=== PATIENT | female | born 1955 | race Caucasian/White ===

== ENCOUNTER → 2016-09-04 | Outpatient (CLI) | payer BC ==
[~2016-09-04] MED LIST: CHOL200018 PO; DCS100C PO; FEXO180T84 PO; FLUT9.9S NS; HCT25T PO; HYDR-3454 PO; LACT1CAP66 PO; NF-ESOM40C PO
--- OUTSIDE RECORDS SUMMARY | 2016-09-04 10:29 | XMS REPORT ---
Author ANTOINETTE Casper Organization [employer] Address Unknown Phone Unavailable Care Team Providers Care Strategic Planning Director Name Role Phone ANTOINETTE BERMUDEZ CP Unavailable Allergies No Known Allergies Problems Problem Type Condition Code Onset Dates Condition Status Assessment Encounter for immunization Z23 Active Problem Need for prophylactic vaccination and inoculation, Influenza V04.81 Active Medications No Known Medications Procedures Procedure Coding System Code Date SINGLE IMMUNIZATION ADMIN CPT-4 39796 Apr 21, 2016 FLUARIX QUAD P-FREE 3 AND UP .50 2015 CPT-4 57598 Apr 21, 2016 Results No Known Results Immunizations Vaccine Administration Date FLUARIX QUAD P-FREE 3 AND UP .50 2015Apr 21, 2016 Summary Purpose [employer]Clinical[employer] Submission
--- NOTE | 2016-09-04 18:46 | Diagnostic Imaging Report ---
Bilateral screening mammogram The current study was also evaluated with a Computer Aided Detection (CAD) system. INDICATION: Screening. No current complaints stated on the questionnaire. COMPARISON: 03/12/2015. FINDINGS: The breasts are composed of heterogeneously dense parenchyma which may decrease mammographic sensitivity. There is no mass, architectural distortion, or suspicious cluster of calcifications. There is a biopsy clip in the medial aspect of the left breast. Allowing for technique and positional differences, no suspicious change is seen. IMPRESSION: No significant change. ACR BI-RADS Category 2: Benign findings. Result letter will be mailed to the patient. Note: At least 10% of breast cancer is not imaged by mammography. Dictated by: Dictated on workstation # [id number]
== END ==
LOC: RAD 10:26
PROVIDERS: ATTEND Internal Medicine
DX: Z12.31 Encounter for screening mammogram for malignant neoplasm of breast (principal)
CPT/HCPCS: 77067

== ENCOUNTER 2018-06-02 02:47 | Observation (INO) | payer BC ==
[~2018-06-02] VITALS: Ht 167.6 cm; Wt 68.0 kg
[2018-06-02] VITALS (13 sets, daily range): BP systolic 108–138; BP diastolic 67–87
--- OUTSIDE RECORDS SUMMARY | 2018-06-02 02:52 | XMS REPORT | Clinical Summary ---
Author Author User, GELY Organization [facility] [place] Address Unknown Phone Unavailable Allergies, Adverse Reactions, Alerts Allergy Name Reaction Description Start Date Severity Status Provider No Known Allergies Mague Sousa Conditions or Problems Problem Name Problem Code Onset Date Status Entry Date Provider Comment Standard Description Annotate PHARYNGITIS, ACUTE 462 Resolved Mague Sousa Acute pharyngitis SINUS CONGESTION 478.1 Resolved Mague Sousa Other diseases of nasal cavity and sinuses OBESITY 278.00 Resolved Mague Sousa Obesity, unspecified COUGH 786.2 Resolved Mague Sousa Cough MENSTRUAL IRREGULARITY 626.4 Resolved Mague Sousa Irregular menstrual cycle ALLERGIC RHINITIS, CHRONIC 477.9 Active Mague Sousa Allergic rhinitis, cause unspecified DYSPNEA ON EXERTION 786.09 Resolved Mague Sousa Other dyspnea and respiratory abnormality OSTEOPOROSIS, UNSPECIFIED 733.00 Resolved Mague Sousa Osteoporosis, unspecified SCREENING MAMMOGRAM NEC V76.12 Resolved Mague Sousa Other screening mammogram SYMPTOM, ABNORMALITY, RESPIRATORY NEC 786.09 Resolved Mague Sousa Other dyspnea and respiratory abnormality DYSPNEA 786.09 Resolved Mague Sousa Other dyspnea and respiratory abnormality SYMPTOM, PAIN, ABDOMINAL, EPIGASTRIC 789.06 Resolved Mague Sousa Abdominal pain, epigastric COUGH 786.2 Resolved Mague Sousa Cough PULMONARY FIBROSIS, 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 Sousa Idiopathic interstitial pneumonia FIBROCYSTIC BREAST DISEASE 610.1 Resolved Mague Sousa Diffuse cystic mastopathy VERTIGO, BENIGN PAROXYSMAL POSITION 386.11 Resolved Mague Sousa Benign paroxysmal positional vertigo CONSTIPATION, CHRONIC 564.09 Resolved Mague Sousa Other constipation WELL WOMAN V70.0 Resolved Mague Sousa Routine general medical examination at a health care facility ELEVATED BLOOD PRESSURE WITHOUT DIAGNOSIS OF HYPERTENSION 796.2 Resolved Mague Sousa Elevated blood pressure reading without diagnosis of hypertension EDEMA LEG 782.3 Active Mague Sousa Edema MERALGIA PARESTHETICA 355.1 Resolved Mague Sousa Meralgia paresthetica HYPOKALEMIA, MILD 276.8 Active Mague Sousa Hypopotassemia ABDOMINAL PAIN, RIGHT UPPER QUADRANT 789.01 Active Mague Sousa Abdominal pain, right upper quadrant Medication List Medication Instructions Start Date Stop Date Generic Name NDC Status Provider Patient Instruction PEEWEE M10 10 MEQ CR-TABS 1 PO daily POTASSIUM CHLORIDE ARVIND CR 43479722064 Active Mague Sousa ZYRTEC 10 MG TAB 1 PO QD CETIRIZINE HCL Active Mague Sousa FLONASE 50 MCG/DOSE INHALANT 2 puffs each nostril daily FLONASE 50 MCG/DOSE INHALANT Active Mague Sousa CALTRATE 600 PLUS-VIT D 600-200 MG-IU TABS 1 PO BID CALCIUM-VITAMIN D No Longer Active Mague Sousa DIALYVITE VITAMIN D 5000 CAPS 1 po daily CHOLECALCIFEROL CAPS 45614962550 Active Maguemargret Sousa HYDROCHLOROTHIAZIDE 25 MG TAB 1 PO QD HYDROCHLOROTHIAZIDE 23678950927 Active Sonja Meraz ANUSOL-HC 2.5 % CREA apply TID prn to hemorrhoid HYDROCORTISONE 39014406237 No Longer Active Mague Tanisha Sousa FLEXERIL 10 MG TABS 1 PO TID prn CYCLOBENZAPRINE HCL 44546296617 No Longer Active Mague Tanisha Sousa VIACTIV 500-100-40 CHEW 1 PO BID CALCIUM-VITAMIN D- VITAMIN K 28820951567 No Longer Active Mague Tanisha Sousa ASTELIN 137 MCG/SPRAY SOLN 2 puffs each nostril twice daily 01/17 AZELASTINE HCL 30723470363 No Longer Active Mague Tanisha Sousa FLONASE 50 MCG/ACT SUSP 1 squirt each nostril BID FLUTICASONE PROPIONATE 35370604434 No Longer Active Mague Tanisha Sousa NEXIUM 40 MG CPDR 1 PO QD ESOMEPRAZOLE MAGNESIUM 18858877186 No Longer Active Mague Tanisha Sousa ATROVENT 18 MCG/ACT AERS 2 puff each nostril before bedtime. 2005 IPRATROPIUM BROMIDE 93451513037 No Longer Active Mague Tanisha Sousa VICKI 180 MG TABS 1 PO QD FEXOFENADINE HCL 10556450785 No Longer Active Mague Tanisha Sousa CODICLEAR DH 5-100 MG/5ML SYRP 5 cc Po Q4-6prn HYDROCODONE-GUAIFENESIN 97752147641 No Longer Active Mague Tnaisha Sousa KETEK 5-DAY PACK DIRECTED KETEK 5-DAY PACK No Longer Active Mague Tanisha Sousa ZITHROMAX Z-CHRIS 250 MG TABS as directed AZITHROMYCIN 24442878268 No Longer Active Mague Sousa ROBITUSSIN DM 100-10 MG/5ML SYRP prn OTC DEXTROMETHORPHAN-GUAIFENESIN 85099182058 No Longer Active Mague Sousa CODICLEAR DH 5-100 MG/5ML SYRP 5 cc Po Q4-6prn HYDROCODONE-GUAIFENESIN 37059277066 No Longer Active Mague Linoner Immunizations Vaccine Administration Date Value Standard Description Influenza vaccine given Done influenza virus vaccine, unspecified formulation Diagnostic Results Date Name Value Unit Range Description Clinical Lists Update: CBC,CMP,FLP,TSH - Chemistry Estimated Glomerular Filtration Rate (calc) >60 mL/min/1.73m2 glucose, plasma fasting 99 mg/dL albumin, serum 4.2 g/dL alkaline phosphatase, serum 70 U/L urea nitrogen, blood 14 mg/dL calcium, serum 9.6 mg/dL chloride, serum 103 mmol/L cholesterol, serum 148 mg/dL cholesterol/HDL ratio, serum, percent 3.74 sodium, serum 139 mmol/L triglyceride, serum, fasting 103 mg/dL bilirubin, serum, total 0.8 mg/dL alanine aminotransferase (SGPT), serum 14 U/L aspartate aminotransferase (SGOT), serum 20 U/L protein, total, serum 7.5 g/dL potassium, serum 3.4 mmol/L LDL cholesterol, serum 127 mg/dL thyroid stimulating hormone, serum 0.980 u[iU]/mL HDL cholesterol, serum 54 mg/dL creatinine, serum 0.80 mg/dL carbon dioxide, venous blood 29 mmol/L Clinical Lists Update: CBC,CMP,FLP,TSH - Hematology platelet count 248 10*3/mm3 erythrocyte (RBC) count 4.42 10*6/mm3 leukocyte count, blood 5.7 10*3/mm3 mean corpuscular volume, RBC 89.6 fL red blood cell distribution width 13.2 % hemoglobin, blood 13.5 g/dL hematocrit, blood 39.6 % Lab Report: CBC - Chemistry basophils, absolute, manual 0.03 10E9/L {Cells}/uL 0.00-0.20 mean corpuscular hemoglobin concentration, rbc 34.1 g/dL 31.0- 34.8 monocytes, absolute, manual 0.46 10E9/L {Cells}/uL 0.20-0.80 polymorphonuclear neutrophils, absolute, manual 2.70 10E9/L { Cells}/uL 1.80-7.80 eosinophils, absolute, manual 0.34 10E9/L {Cells}/uL 0.00-0.45 lymphocytes, absolute, manual 2.18 10E9/L {Cells}/uL 1.00-4.00 Lab Report: CBC - Hematology platelet count 248 143-374 8052/07/31 monocytes as percent of blood leukocytes 8.0 % eosinophils as percent of blood leukocytes 5.9 % mean platelet volume 10.1 fL 9.4-12.8 neutrophil count, CSF 47.3 % basophils as percent of blood leukocytes, automated count 0.5 % mean corpuscular hemoglobin, RBC 30.5 pg 26.7-33.2 mean corpuscular volume, RBC 89.6 fL 82.8-99.8 hematocrit, blood 39.6 % 36.4-47.7 hemoglobin, blood 13.5 g/dL 11.8-15.9 lymphocytes as percent of blood leukocytes, manual count 38.3 % Lab Report: CHEM 14 - Chemistry protein total, urine 7.5 GM/DL 6.5-8.2 sodium, serum 139 mmol/L 114-860 4156/07/31 blood glucose, random 99 mg/dL 70-100 urea nitrogen, blood 14 mg/dL 5-22 chloride, blood 103 mmol/L 96-108 albumin, serum 4.2 g/dL 3.9-4.9 aspartate aminotransferase (SGOT), serum 20 U/L 0-40 bilirubin, serum, total 0.8 mg/dL 0.1-1.0 calcium, serum 9.6 mg/dL 8.5-10.5 bicarbonate, serum 29 mmol/L 18-30 potassium, serum 3.4 mmol/L 3.5-5.5 alanine aminotransferase (SGPT), serum 14 U/L 0-40 alkaline phosphatase, serum 70 U/L 28-123 Lab Report: CHEM 14 - Lab CREATININE 0.80 0.50-1.10 Lab Report: LIPID GRP - Chemistry cholesterol, serum 202 mg/dL [phone]/07/31 HDL cholesterol, serum 54 mg/dL 40-125 triglyceride, serum, random 103 mg/dL 30-150 Lab Report: TSH - Chemistry thyroid stimulating hormone, serum 0.980 u[iU]/mL 0.300-5.000 Encounters Code Encounter Date Provider Facility CPT-17004 Ofc Vst, Est Level IV 20:51:43 CDT Mague Sousa DO, FACP CPT-35374 Ofc Vst, Est Level III 12:54:11 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 Mague Sousa DO, FACP CPT-49731 Ofc Vst, Est Level IV 12:12:27 CDT Mague Sousa DO, FACP CPT-51803 Ofc Vst, Est Level IV 12:00:33 CDT Mague Sousa [facility] [place] CPT-68256 Ofc Vst, Est Level III 11:46:03 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 Tanisha Sousa [facility] [place] CPT-75342 Ofc Vst, Est Level III 14:27:19 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 Mague Tanisha Sousa [facility] [place] CPT-40864 Ofc Vst, Est Level IV 14:34:49 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 Tanisha Sousa [facility] [place] CPT-13911 Ofc Vst, Est Level III 17:42:59 [facility] Tanisha Sousa [facility] [place] CPT-08419 Ofc Vst, New Level IV 17:03:35 [facility] Tanisha Sousa [facility] [place] CPT-04928 Ofc Vst, New Level II 13:31:06 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 Tanisha Sousa [facility] [place] Procedures Code Procedure Name Date Entry Date Standard Description CPT-93353 Preventive, Est, (40-64) 13:24:36 CDT CPT-51602 Preventive, Est, (40-64) 11:42:00 CDT CPT-51212 Preventive, New, (40-64) 11:21:10 CDT CPT-49209 PPD 11:46:03 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
--- OUTSIDE RECORDS SUMMARY | 2018-06-02 02:52 | XMS REPORT ---
Author Author ANTOINETTE BERMUDEZ [facility] Address [address] [place] [address] Care Team Providers Care Painter And Decorator Name Role Phone ANTOINETTE BERMUDEZ Unavailable PROBLEMS Type Condition ICD9-CM Code ZSH37-EW Code Onset Dates Condition Status SNOMED Code Problem Need for prophylactic vaccination and inoculation, Influenza V04.81 Active [id number] ALLERGIES No Information ENCOUNTERS Encounter Location Date Diagnosis [place] [id number] [place] [phone] Apr, Encounter for immunization Z23 [place] [id number] [place] [address] [phone] Apr, Encounter for immunization Z23 [place] [id number] [place] [address] [phone] Mar, Encounter for immunization [place] [id number] [place] [address] [phone] Mar, [place] [id number] [place] [address] [phone] Mar, [place] [id number] [place] [address] [phone] Mar, [place] [id number] [place] [address] [phone] Mar, IMMUNIZATIONS Vaccine Route Administration Date Status FLUARIX QUAD (3 AND UP) 2016 IM Intramuscular Apr 20, 2017 Administered SOCIAL HISTORY Never Assessed REASON FOR VISIT Flu shot-[facility] [place] PLAN OF CARE VITAL SIGNS MEDICATIONS Unknown Medications RESULTS No Results PROCEDURES Procedure Date Ordered Result Body Site FLUARIX QUAD (3 AND UP) 2017 Apr 20, 2017 SINGLE IMMUNIZATION ADMIN Apr 20, 2017 INSTRUCTIONS MEDICATIONS ADMINISTERED No Known Medications
--- OUTSIDE RECORDS SUMMARY | 2018-06-02 02:53 | XMS REPORT ---
Author ANTOINETTE Casper Organization [employer] Address Unknown Phone Unavailable Care Team Providers Care Multiple Drum Sander Helper Name Role Phone ANTOINETTE BERMUDEZ CP Unavailable Allergies No Known Allergies Problems Problem Type Condition Code Onset Dates Condition Status Assessment Encounter for immunization Z23 Active Problem Need for prophylactic vaccination and inoculation, Influenza V04.81 Active Medications No Known Medications Procedures Procedure Coding System Code Date SINGLE IMMUNIZATION ADMIN CPT-4 80968 Apr 21, 2016 FLUARIX QUAD P-FREE 3 AND UP .50 2015 CPT-4 31888 Apr 21, 2016 Results No Known Results Immunizations Vaccine Administration Date FLUARIX QUAD P-FREE 3 AND UP .50 2015Apr 21, 2016 Summary Purpose [employer]ClinicalWorks Submission
--- OUTSIDE RECORDS SUMMARY | 2018-06-02 02:53 | XMS REPORT ---
Author ANTOINETTE Casper Organization [employer] Address Unknown Phone Unavailable Care Team Providers Care Score Caller Name Role Phone ANTOINETTE BERMUDEZ CP Unavailable Allergies No Known Allergies Problems Problem Type Condition Code Onset Dates Condition Status Assessment Encounter for immunization Z23 Active Problem Need for prophylactic vaccination and inoculation, Influenza V04.81 Active Medications No Known Medications Procedures Procedure Coding System Code Date SINGLE IMMUNIZATION ADMIN CPT-4 57284 Apr 09, 2015 FLUARIX QUAD (3 & UP)-GSK-2014 CPT-4 27884 Apr 09, 2015 Results No Known Results Immunizations Vaccine Administration Date FLUARIX QUAD (3 & UP)-GSK-2014Apr 09, 2015 Summary Purpose eClinicalWorks Submission
--- OUTSIDE RECORDS SUMMARY | 2018-06-02 02:53 | XMS REPORT | Continuity of Care Document ---
Author Author Count Includes [facility] Address Unknown Phone Unavailable Allergies Active Description Code Type Severity Reaction Onset Reported/Identified Relationship to Patient Clinical Status Yes NKANo Known Allergies NKA Miscellaneous Allergy Unknown N/A 09/03/2015 Medications There is no data. Problems Date Dx Coded Attending Type Code Diagnosis Diagnosed By 03/22/2012 ANTOINETTE BERMUDEZ DO V04.81 FLU DX (3 YRS AND ABOVE, IM) 03/22/2012 ANTOINETTE BERMUDEZ DO V04.81 FLU DX (3 YRS AND ABOVE, IM) 01/08/2014 PARTHA LYN DO Ot 575.11 CHRONIC CHOLECYSTITIS 03/24/2015 GERA PAGE DO Ot V76.12 09/03/2015 PARTHA LYN DO Ot Z01.818 ENCOUNTER FOR OTHER PREPROCEDURAL EXAMIN 09/06/2015 PARTHA LYN DO Ot Z01.818 09/07/2015 PARTHA LYN DO Ot K21.9 GASTRO-ESOPHAGEAL REFLUX DISEASE WITHOUT 09/07/2015 PARTHA LYN DO Ot K44.9 DIAPHRAGMATIC HERNIA WITHOUT OBSTRUCTION 09/07/2015 PARTHA LYN DO Ot Z12.11 ENCOUNTER FOR SCREENING FOR MALIGNANT NE 09/07/2015 PARTHA LYN DO Ot Z80.0 FAMILY HISTORY OF MALIGNANT NEOPLASM OF 09/07/2015 Ot 733.90 09/07/2015 Ot V76.12 09/07/2015 BRANDON PAGE DOI Ot V76.12 09/07/2015 PAGESHAWN MOFFETT GERA Ot 573.8 09/07/2015 CAMILO MOFFETT GERA Ot 575.9 09/07/2015 PAGESHAWN MOFFETT GERA Ot 789.01 09/07/2015 PAGESHAWN MOFFETT GERA Ot 575.8 09/07/2015 CAMILO MOFFETT GERA Ot 789.01 09/07/2015 PARTHA LYN DO Ot 575.8 09/07/2015 PARTHA LYN DO Ot V72.81 09/07/2015 LYN RAZIA MOFFETTREGINALD Pickering Ot V74.8 09/07/2015 PAGE GERA Ot V76.12 09/08/2015 LYN DORAZIAREGINALD Pickering Ot K21.9 09/08/2015 LYN PARTHA MOFFETT Ladan Ot K44.9 09/08/2015 LYN DOPARTHA Ladan Ot Z12.11 09/08/2015 LYN DORAZIAREGINALD Pickering Ot Z80.0 09/04/2016 GERA PAGE DO Ot V76.12 OTH SCREEN MAMMO-MALIGN NEOPLASM OF [place] 09/04/2016 CAMILO MOFFETT GERA Ot 573.8 LIVER DISORDERS NEC 09/04/2016 BRANDON PAGE DOI Ot 575.9 DIS OF GALLBLADDER NOS 09/04/2016 BRANDON PAGE DOI Ot 789.01 ABDOMINAL PAIN, RIGHT UPPER QUADRANT 09/04/2016 GERA PAGE DO Ot 575.8 DIS OF GALLBLADDER NEC 09/04/2016 BRANDON PAGE DOI Ot 789.01 ABDOMINAL PAIN, RIGHT UPPER QUADRANT 09/04/2016 RIKI PARTHA Ot 575.8 DIS OF GALLBLADDER NEC 09/04/2016 LYN RAZIA MOFFETTREGINALD Pickering Ot V72.81 [id number] CARDIOVASCULAR 09/04/2016 PARTHA LYN DO Ot V74.8 SCREEN-BACTERIAL DIS NEC 09/04/2016 GERA PAGE DO Ot V76.12 OTH SCREEN MAMMO-MALIGN NEOPLASM OF [place] 09/05/2016 GERA PAGE DO Ot Z12.31 ENCNTR SCREEN MAMMOGRAM FOR MALIGNANT NE 09/19/2016 GERA PAGE DO Ot Z12.31 ENCNTR SCREEN MAMMOGRAM FOR MALIGNANT NE 10/07/2016 GERA PAGE DO Ot V76.12 OTH SCREEN MAMMO-MALIGN NEOPLASM OF [place] 10/07/2016 BRANDON PAGE DOI Ot 573.8 LIVER DISORDERS NEC 10/07/2016 BRANDON PAGE DOI Ot 575.9 DIS OF GALLBLADDER NOS 10/07/2016 BRANDON PAGE DOI Ot 789.01 ABDOMINAL PAIN, RIGHT UPPER QUADRANT 10/07/2016 GERA PAGE DO Ot 575.8 DIS OF GALLBLADDER NEC 10/07/2016 BRANDON PAGE DOI Ot 789.01 ABDOMINAL PAIN, RIGHT UPPER QUADRANT 10/07/2016 PARTHA LYN DO Ladan Ot 575.8 DIS OF GALLBLADDER NEC 10/07/2016 LYN PARTHA D Ot V72.81 [id number] CARDIOVASCULAR 10/07/2016 LYN PARTHA D Ot V74.8 SCREEN-BACTERIAL DIS NEC 10/07/2016 PAGESHAWN MOFFETT GERA Ot V76.12 OTH SCREEN MAMMO-MALIGN NEOPLASM OF [place] 10/07/2016 CAMILO MOFFETT GERA Ot Z12.31 ENCNTR SCREEN MAMMOGRAM FOR MALIGNANT NE 06/02/2018 PAGESHAWN MOFFETT GERA Ot V76.12 OTH SCREEN MAMMO-MALIGN NEOPLASM OF [place] 06/02/2018 CAMILO MOFFETT GERA Ot 573.8 LIVER DISORDERS NEC 06/02/2018 CAMILO MOFFETT GERA Ot 575.9 DIS OF GALLBLADDER NOS 06/02/2018 CAMILO MOFFETT GERA Ot 789.01 ABDOMINAL PAIN, RIGHT UPPER QUADRANT 06/02/2018 GERA PAGE DO Ot 575.8 DIS OF GALLBLADDER NEC 06/02/2018 CAMILO MOFFETT GERA Ot 789.01 ABDOMINAL PAIN, RIGHT UPPER QUADRANT 06/02/2018 LYN RAZIA MOFFETTREGINALD Pickering Ot 575.8 DIS OF GALLBLADDER NEC 06/02/2018 RIKI MOFFETT PARTHA D Ot V72.81 [id number] CARDIOVASCULAR 06/02/2018 LYN PARTHA D Ot V74.8 SCREEN-BACTERIAL DIS NEC 06/02/2018 PAGESHAWN MOFFETT GEAR Ot V76.12 OTH SCREEN MAMMO-MALIGN NEOPLASM OF [place] 06/02/2018 GERA PAGE DO Ot Z12.31 ENCNTR SCREEN MAMMOGRAM FOR MALIGNANT NE Procedures There is no data. Results There is no data. Encounters ACCT No. Visit Date/Time Discharge Status Pt. Type Provider Facility Loc./Unit Complaint [id number] 03/27/2014 10:36:00 03/27/2014 23:59:59 [facility] Outpatient ANTOINETTE BERMUDEZ DO [id number] 03/21/2013 10:45:00 03/21/2013 23:59:59 [facility] Outpatient ANTOINETTE BERMUDEZ DO [id number] 03/12/2015 13:05:53 ACT Document Registration [id number] 04/20/2017 08:00:00 04/20/2017 23:59:59 [facility] [id number] 09/12/2017 07:30:00 09/12/2017 23:59:59 CLS Preadmit PAGE DO, GERA [facility] RAD SCREENING [id number] 09/04/2016 10:26:00 09/04/2016 23:59:59 CLS Outpatient PAGE DO, GERA [facility] RAD SCREENING [id number] 09/07/2015 06:44:00 09/07/2015 09:18:00 DIS Outpatient PARTHA LYN DO D [facility] SDC SCREENING,REFLEX [id number] 09/03/2015 05:35:00 09/03/2015 15:26:00 DIS Outpatient PARTHA LYN DO D [facility] PREOP SCREENING,REFLEX [id number] 03/12/2015 13:05:00 03/12/2015 23:59:59 CLS Outpatient PAGE DO, GERA [facility] RAD SCREENING [id number] 01/08/2014 09:24:00 01/08/2014 17:45:00 DIS Outpatient PARTHA LYN DO D [facility] SDC GALLSTONES [id number] 01/07/2014 11:46:00 01/07/2014 23:59:59 CLS Outpatient RAZIA LYN DOTT D [facility] PREOP GALLSTONES [id number] 12/29/2013 09:42:00 12/29/2013 23:59:59 CLS Outpatient PAGE DO, GERA [facility] CARD ABDOMINAL PAIN RIGHT UPPER QUADRANT PAIN [id number] 12/15/2013 06:44:00 12/15/2013 23:59:59 CLS Outpatient PAGE DO, GERA [facility] RAD ABD PAIN [id number] 04/25/2013 13:47:00 04/25/2013 23:59:59 CLS Outpatient PAGE DO, GERA [facility] RAD SCREENING [id number] 06/02/2018 02:48:00 ACT Emergency JOSE LSANDRA Leos DO [facility] ER NAUSEA [id number] 01/24/2011 10:40:00 Document Registration
[2018-06-02] MEDS ORDERED: LACTATED RINGERS 1,000 ML IV ONE ×2 (03:03→03:42)
[2018-06-02 03:13] LABS: BASOPHILS % (AUTO) 1 % (0-10); EOSINOPHILS # (AUTO) 0.4 10^3/uL (0.0-0.3); EOSINOPHILS % (AUTO) 4 % (0-10); HEMATOCRIT 42 % (35-52); HEMOGLOBIN 14.5 G/DL (11.5-16.0); LYMPHOCYTES # (AUTO) 3.3 X 10^3 (1.0-4.0); LYMPHOCYTES % (AUTO) 40 % (12-44); MEAN CORPUSCULAR HEMOGLOBIN 31 PG (25-34); MEAN CORPUSCULAR HGB CONC 34 G/DL (32-36); MEAN CORPUSCULAR VOLUME 89 FL (80-99); MONOCYTES # (AUTO) 0.7 X 10^3 (0.0-1.0); MONOCYTES % (AUTO) 8 % (0-12); NEUTROPHILS % (AUTO) 47 % (42-75); PLATELET COUNT 265 10^3/uL (130-400); RED BLOOD COUNT 4.71 10^6/uL (4.35-5.85); RED CELL DISTRIBUTION WIDTH 13.9 % (10.0-14.5); WHITE BLOOD COUNT 8.4 10^3/uL (4.3-11.0)
--- NOTE | 2018-06-02 03:14 | ED General ---
General Chief Complaint: Dizziness/Syncope Stated Complaint: NAUSEA Nursing Triage Note: BROUGHT IN BY [facility] FO [facility] N/V, SYNCOPAL EPISODE THIS AM. Nursing Sepsis Screen: No Definite Risk Source of Information: Patient, EMS History of Present Illness Date Seen by Provider: Jun 02, 2018 Time Seen by Provider: 02:48 Initial Comments PT ARRIVES VIA EMS FROM HOME PT STATES SHE WOKE UP AND WENT TO THE BATHROOM TO URINATE, AND SHE REMEMBERS FEELING DIZZY AND FEELING LIKE SHE WAS GOING TO PASS OUT, CALLED FOR HER AND HE HELPED HER BACK TO THE BATHROOM AND SHE VOMITED AND PASSED OUT / ALMOST PASSED OUT. CAUGHT HER, NO INJURY. PT STATES SHE DOES NOT REMEMBER VOMITING OR PASSING OUT STATES SHE IS NOT NAUSEATED, BUT HER STOMACH "FEELS SOUR", OTHERWISE FEELS FAIRLY NORMAL NO HEADACHE NO LONGER DIZZY NO VISION CHANGES NO CHEST PAIN NO SHORTNESS OF BREATH NO PALPITATIONS NO ABDOMINAL PAIN NO DIARRHEA NO FEVER OR RECENT ILLNESS NO PARESTHESIAS OR MOTOR DEFICITS NO REPORTED TONIC-CLONIC SEIZURE ACTIVITY NO HISTORY OF SIMILAR. ARRIVES A SHORT TIME LATER, AND STATES THE EPISODE LASTED 3-4 MINUTES AND PT'S WHOLE BODY GOT STIFF AND SHE TENSED UP AND HER ARMS/HANDS CURLED IN. PT HAS NO RECOLLECTION OF THE EVENT, BUT NO POST ICTAL SYMPTOMS. PCP: DR. 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, [employer] Allergies and Home Medications Allergies Coded Allergies: CESARIOANo Known Allergies (Verified Allergy, Unknown, 09/03/15) Home Medications Cholecalciferol (Vitamin D3) 2,000 Unit Capsule, 2,000 UNIT PO DAILY, (Reported) Esomeprazole Magnesium 40 Mg Cap, 40 MG PO DAILY Prescribed by: PARTHA LYN on 09/07/15 0824 Fexofenadine HCl 180 Mg Tablet, 180 MG PO PRN PRN for CONGESTION, (Reported) Fluticasone Propionate 9.9 Ml Muse.susp, 1 SPRAY NS PRN PRN for CONGESTION, ( Reported) Hydrochlorothiazide 25 Mg Tab, 25 MG PO DAILY, (Reported) Lactobacillus Combination No.4 1 Each Capsule, 1 EACH PO DAILY, (Reported) Patient Home Medication List Home Medication List Reviewed: Yes Review of Systems Review of Systems Constitutional: see HPI; No chills, No diaphoresis; dizziness; No fever, No malaise, No weakness EENTM: no symptoms reported Respiratory: no symptoms reported Cardiovascular: see HPI; No chest pain, No palpitations; syncope; No vascular heart diseas Gastrointestinal: see HPI; No abdominal pain, No diarrhea; nausea, vomiting Genitourinary: no symptoms reported Musculoskeletal: no symptoms reported Skin: no symptoms reported Psychiatric/Neurological: See HPI; Denies Headache, Denies Numbness, Denies Paresthesia, Denies Seizure, Denies Tingling, Denies Weakness Hematologic/Lymphatic: No Symptoms Reported Immunological/Allergic: no symptoms reported Past Delutqn-Ehgddg-Bsquat Hx Patient Social History Alcohol Use: Denies Use Recreational Drug Use: No Smoking Status: Never a Smoker 2nd Hand Smoke Exposure: No Recent Foreign Travel: No Contact w/Someone Who Travel: No Recent Infectious Disease Expo: No Recent Hopitalizations: No Immunizations Up To Date Date of Pneumonia Vaccine: Sep 06, 2010 Date of Influenza Vaccine: Apr 08, 2015 Seasonal Allergies Seasonal Allergies: Yes Past Medical History Surgeries: Yes (BREAST BX) Section, Gallbladder Respiratory: No Cardiac: Yes (MILD MVP) Hypertension Neurological: No Genitourinary: No Gastrointestinal: Yes Gastroesophageal Reflux, Hiatal Hernia Musculoskeletal: No Endocrine: No HEENT: No Cancer: No Psychosocial: No Integumentary: No Blood Disorders: No Physical Exam Vital Signs Vital Signs - First Documented 06/02/18 02:50 Temp 98.1 Pulse 90 Resp 16 B/P (MAP) 126/99 (108) Pulse Ox 96 O2 Delivery Room Air Capillary Refill : Less Than 3 Seconds Height, Weight, BMI Height: 4'11.00" Weight: 150lbs. oz. 68.479005yn; 29.69 BMI Method:Stated General Appearance: No Apparent Distress, WD/WN HEENT: PERRL/EOMI Neck: Full Range of Motion, Normal Inspection, Non Tender, Supple; No Carotid Bruit, No JVD Respiratory: Normal Breath Sounds, No Accessory Muscle Use, No Respiratory Distress Cardiovascular: Regular Rate, Rhythm, No Edema, No JVD, No Murmur, Normal Peripheral Pulses Gastrointestinal: Normal Bowel Sounds, No Organomegaly, No Pulsatile Mass, Non Tender, Soft Back: Normal Inspection, No CVA Tenderness, No Vertebral Tenderness Extremity: Normal Capillary Refill, Normal Inspection, Normal Range of Motion, Non Tender, No Calf Tenderness, No Pedal Edema Neurologic/Psychiatric: Alert, Oriented x3, No Motor/Sensory Deficits, Normal Mood/Affect, nailhead setter II-XII Norm as Tested Skin: Normal Color, Warm/Dry Progress/Results/Core Measures Suspected Sepsis Recent Fever Within 48 Hours: No Infection Criteria Present: None New/Unexplained Altered Menta: No Sepsis Screen: No Definite Risk SIRS Temperature:98.1 Pulse: 90 Respiratory Rate: 16 Laboratory Tests 06/02/18 03:02: White Blood Count 8.4 Blood Pressure 126 /99 Mean: 108 Laboratory Tests 06/02/18 03:02: Creatinine 1.06, INR Comment 0.9, Platelet Count 265, Total Bilirubin 0.7 Results/Orders Lab Results Laboratory Tests Test 06/02/18 03:02 Range/Units White Blood Count 8.4 4.3-11.0 10^3/uL Red Blood Count 4.71 4.35-5.85 10^6/uL Hemoglobin 14.5 11.5-16.0 G/DL Hematocrit 42 35-52 % Mean Corpuscular Volume 89 80-99 FL Mean Corpuscular Hemoglobin 31 25-34 PG Mean Corpuscular Hemoglobin Concent 34 32-36 G/DL Red Cell Distribution Width 13.9 10.0-14.5 % Platelet Count 265 130-400 10^3/uL Mean Platelet Volume 10.0 7.4-10.4 FL Neutrophils (%) (Auto) 47 42-75 % Lymphocytes (%) (Auto) 40 12-44 % Monocytes (%) (Auto) 8 0-12 % Eosinophils (%) (Auto) 4 0-10 % Basophils (%) (Auto) 1 0-10 % Neutrophils # (Auto) 4.0 1.8-7.8 X 10^3 Lymphocytes # (Auto) 3.3 1.0-4.0 X 10^3 Monocytes # (Auto) 0.7 0.0-1.0 X 10^3 Eosinophils # (Auto) 0.4 H 0.0-0.3 10^3/uL Basophils # (Auto) 0.0 0.0-0.1 10^3/uL Prothrombin Time 11.6 L 12.2-14.7 SEC INR Comment 0.9 0.8-1.4 Activated Partial Thromboplast Time 26 24-35 SEC Sodium Level 142 135-145 MMOL/L Potassium Level 3.2 L 3.6-5.0 MMOL/L Chloride Level 103 98-107 MMOL/L Carbon Dioxide Level 25 21-32 MMOL/L Anion Gap 14 5-14 MMOL/L Blood Urea Nitrogen 21 H 7-18 MG/DL Creatinine 1.06 0.60-1.30 MG/DL Estimat Glomerular Filtration Rate 52 BUN/Creatinine Ratio 20 Glucose Level 126 H 70-105 MG/DL Glucometer 146 H 70-110 MG/DL Calcium Level 10.2 H 8.5-10.1 MG/DL Corrected Calcium 10.1 8.5-10.1 MG/DL Magnesium Level 2.5 H 1.8-2.4 MG/DL Total Bilirubin 0.7 0.1-1.0 MG/DL Aspartate Amino Transf (AST/SGOT) 18 5-34 U/L Alanine Aminotransferase (ALT/SGPT) 14 0-55 U/L Alkaline Phosphatase 85 40-136 U/L Troponin I < 0.30 <0.30 NG/ML Total Protein 7.7 6.4-8.2 GM/DL Albumin 4.1 3.2-4.5 GM/DL Amylase Level 91 25-125 U/L Lipase 39 8-78 U/L TSH [place] Testing 2.33 0.35-4.94 UIU/ML My Orders Orders - JOSE L,SANDRA K DO Accucheck Stat ONCE (06/02/18 03:03) Saline Lock/Iv-Start (06/02/18 03:03) Ekg Tracing (06/02/18 03:03) Monitor-Rhythm Ecg Trace Only (06/02/18 03:03) Amylase (06/02/18 03:03) Cbc With Automated Diff (06/02/18 03:03) Comprehensive Metabolic Panel (06/02/18 03:03) Lipase (06/02/18 03:03) Magnesium (06/02/18 03:03) Protime With Inr (06/02/18 03:03) Partial Thromboplastin Time (06/02/18 03:03) Thyroid Analyzer (06/02/18 03:03) Troponin I (06/02/18 03:03) Ua Culture If Indicated (06/02/18 03:03) Ct Head Wo-R/O Stroke (06/02/18 03:03) Chest 1 View, Ap/Pa Only (06/02/18 03:03) Saline Lock/Iv-Start (06/02/18 03:03) Lactated Ringers (Lr 1000 Ml Iv Solution (06/02/18 03:03) Ondansetron Injection (Zofran Injectio (06/02/18 03:15) Pantoprazole Injection (Protonix Injecti (06/02/18 03:15) Saline Lock/Iv-Start (06/02/18 03:42) Lactated Ringers (Lr 1000 Ml Iv Solution (06/02/18 03:42) Medications Given in ED Current Medications Medications Dose Ordered Sig/Radha Route Start Time Stop Time Status Last Admin Dose Admin Lactated Ringer's 1,000 ml @ 0 mls/hr Q0M ONCE IV 06/02/18 03:03 06/02/18 03:07 DC 06/02/18 03:10 0 MLS/HR Ondansetron HCl 4 mg ONCE ONCE IVP 06/02/18 03:15 06/02/18 03:16 DC 06/02/18 03:10 4 MG Pantoprazole 40 mg ONCE ONCE IV 06/02/18 03:15 06/02/18 03:16 DC 06/02/18 03:10 40 MG Vital Signs/I&O 06/02/18 02:50 Temp 98.1 Pulse 90 Resp 16 B/P (MAP) 126/99 (108) Pulse Ox 96 O2 Delivery Room Air Capillary Refill : Less Than 3 Seconds Blood Pressure Mean: 108 Progress Note : Progress Note UNEVENTFUL ER STAY ECG Initial ECG Impression Date: Jun 02, 2018 Initial ECG Impression Time: 03:11 Initial ECG Rate: 84 Initial ECG Rhythm: Normal Sinus Diagnostic Imaging Comments CT HEAD--NO ACUTE PROCESS, NORMAL. PER [facility] RADIOLOGIST VIA PHONE AT [phone] CXR--NO ACUTE PROCESS, PENDING RADIOLOGIST REVIEW Reviewed: Reviewed by Me Departure Communication (Admissions) 405--SPOKE WITH DR. AMAYA, ACCEPTS PT FOR ADMIT Impression Primary Impression: Syncope Disposition: 09 ADMITTED INPATIENT Condition: Stable Admissions Decision to Admit Reason: Admit from ER (General) Decision to Admit/Date: Jun 02, 2018 Time/Decision to Admit Time: 04:05 Departure-Patient Inst. Referrals: GERA PAGE DO (PCP/Family) Primary Care Physician SANDRA DOMINGO DO Jun 02, 2018 03:14
[2018-06-02] MEDS ORDERED: PANTOPRAZOLE 40 MG (PROTONIX) VIAL IV ONE (03:15)
[2018-06-02] MEDS ORDERED: ONDANSETRON 4 MG/2 ML (SDV) Z0FRAN IVP ONE (03:15)
[2018-06-02 03:22] LABS: INR 0.9 (0.8-1.4); PROTHROMBIN TIME PATIENT 11.6 SEC (12.2-14.7)
[2018-06-02 03:31] LABS: ALANINE AMINOTRANSFERASE 14 U/L (0-55); ALBUMIN 4.1 GM/DL (3.2-4.5); ALKALINE PHOSPHATASE 85 U/L (40-136); AMYLASE 91 U/L (25-125); BILIRUBIN,TOTAL 0.7 MG/DL (0.1-1.0); BUN/CREATININE RATIO 20; CALCIUM 10.2 MG/DL (8.5-10.1); CARBON DIOXIDE 25 MMOL/L (21-32); CHLORIDE 103 MMOL/L (98-107); CREATININE SERUM 1.06 MG/DL (0.60-1.30); GFR ESTIMATED 52; GLUCOSE 126 MG/DL (70-105); LIPASE 39 U/L (8-78); MAGNESIUM 2.5 MG/DL (1.8-2.4); POTASSIUM 3.2 MMOL/L (3.6-5.0); SODIUM 142 MMOL/L (135-145); TOTAL PROTEIN 7.7 GM/DL (6.4-8.2)
[2018-06-02 03:53] LABS: TSH (THYROID ANALYZER) 2.33 UIU/ML (0.35-4.94)
[2018-06-02 04:47] LABS: BILIRUBIN,URINE NEGATIVE (NEGATIVE); CLARITY,URINE SLIGHTLY CLOUDY; COLOR,URINE YELLOW; GLUCOSE, URINE (UA) NEGATIVE (NEGATIVE); KETONES,URINE NEGATIVE (NEGATIVE); LEUKOCYTE ESTERASE ,URINE 3+ (NEGATIVE); NITRITE,URINE NEGATIVE (NEGATIVE); PH,URINE 7 (5-9); PROTEIN,URINE NEGATIVE (NEGATIVE); UROBILINOGEN,URINE NORMAL (NORMAL)
[2018-06-02 05:00] LABS: AMORPHOUS SEDIMENT,UR LARGE AMOR URATES /LPF; BACTERIA,URINE TRACE /HPF; WBC,URINE RARE /HPF
--- NOTE | 2018-06-02 06:13 | Diagnostic Imaging Report ---
PROCEDURE: CT head wo r/o stroke. TECHNIQUE: Multiple contiguous axial images were obtained through the brain without the use of intravenous contrast. Indication: Syncopal episode with nausea and vomiting, altered mental status. Comparison: None. Discussion: No intracranial hemorrhage, mass, midline shift, or hydrocephalus. The ventricles and sulci are normal size and configuration for age. The visualized orbits, paranasal sinuses, mastoid air cells, and calvarium are unremarkable. Incidental note of a prominent focus of arachnoid granulation within the right frontal calvarium. Impression: 1. Negative head CT. 2. Agree with preliminary report. Dictated by: Dictated on workstation # [id number]
--- NOTE | 2018-06-02 06:13 | Pulmonary Consultation ---
History of Present Illness History of Present Illness Date of Consultation 06/02/18 05:48 Time Seen by Provider: 05:48 Date of Admission History of Present Illness 62yo patient presented to ED via EMS after syncope episode. pt became dizzy, nauseated and then vomited prior to syncope. Syncope was witnessed by and caught pt as she was falling. Pt did not hit her head. Pt does not remember episode. No prior episodes like this in the past. No f/ns/chills and no SOB, CP, or palpitations. Pt did not bite her tongue or loose control of her urine. Fa;wei states she did get really stiff after syncopal episode. Allergies and Home Medications Allergies Coded Allergies: NKANo Known Allergies (Verified Allergy, Unknown, 09/03/15) Home Medications Cholecalciferol (Vitamin D3) 2,000 Unit Capsule, 2,000 UNIT PO DAILY, (Reported) Esomeprazole Magnesium 40 Mg Cap, 40 MG PO DAILY Prescribed by: PARTHA LYN on 09/07/15 0824 Fexofenadine HCl 180 Mg Tablet, 180 MG PO PRN PRN for CONGESTION, (Reported) Fluticasone Propionate 9.9 Ml Erwin.susp, 1 SPRAY NS PRN PRN for CONGESTION, ( Reported) Hydrochlorothiazide 25 Mg Tab, 25 MG PO DAILY, (Reported) Lactobacillus Combination No.4 1 Each Capsule, 1 EACH PO DAILY, (Reported) Past Lteonet-Fyynwk-Imaimn Hx Patient Social History Alcohol Use: Denies Use Recreational Drug Use: No Smoking Status: Never a Smoker 2nd Hand Smoke Exposure: No Recent Foreign Travel: No Contact w/Someone Who Travel: No Recent Infectious Disease Expo: No Recent Hopitalizations: No Immunizations Up To Date Date of Pneumonia Vaccine: Sep 06, 2010 Date of Influenza Vaccine: Apr 08, 2015 Seasonal Allergies Seasonal Allergies: Yes Past Medical History Surgeries: Yes (BREAST BX) Section, Gallbladder Respiratory: No Cardiac: Yes (MILD MVP) Hypertension Neurological: No Genitourinary: No Gastrointestinal: Yes Gastroesophageal Reflux, Hiatal Hernia Musculoskeletal: No Endocrine: No HEENT: No Cancer: No Psychosocial: No Integumentary: No Blood Disorders: No Sepsis Event Evaluation Height, Weight, BMI Height: 4'11.00" Weight: 150lbs. oz. 68.538058hl; 29.69 BMI Method:Stated Exam Exam Vital Signs Date Time Temp Pulse Resp B/P (MAP) Pulse Ox O2 Delivery O2 Flow Rate FiO2 06/02/18 05:10 98.0 77 17 108/69 (82) 94 Room Air 06/02/18 02:50 98.1 90 16 126/99 (108) 96 Room Air I & O 06/02/18 07:00 Intake Total 1000 ml Balance 1000 ml Height & Weight Height: 4'11.00" Weight: 150lbs. oz. 68.311654nn; 29.69 BMI Method:Stated General Appearance: No Apparent Distress, WD/WN HEENT: PERRL/EOMI Neck: Full Range of Motion, Normal Inspection, Non Tender, Supple; No Carotid Bruit, No JVD Respiratory: Normal Breath Sounds, No Accessory Muscle Use, No Respiratory Distress Cardiovascular: Regular Rate, Rhythm, No Edema, No JVD, No Murmur, Normal Peripheral Pulses Capillary Refill: Less Than 3 Seconds Extremity: Normal Capillary Refill, Normal Inspection, Normal Range of Motion, Non Tender, No Calf Tenderness, No Pedal Edema Neurologic/Psychiatric: Alert, Oriented x3, No Motor/Sensory Deficits, Normal Mood/Affect, picker feeder II-XII Norm as Tested Skin: Normal Color, Warm/Dry Results Lab Laboratory Tests 06/02/18 03:02 Assessment/Plan Assessment/Plan S/p Syncope- Probably vasovagal -Check Carotid dopplers -check echocardiogram Dehydration -IVF -Monitor -Pt takes HTCZ at home Hypokalemia -replace JAYCE UJAN DO Jun 02, 2018 06:13
[2018-06-02] MEDS ORDERED: D5 1/2 NS W/KCL 20 MEQ/L 1,000 ML IV SCH (06:15)
[2018-06-02] MEDS ORDERED: ONDANSETRON 4 MG/2 ML (SDV) Z0FRAN IV PRN (06:15)
[2018-06-02] MEDS ORDERED: NS IV 1000 ML 1,000 ML ONE (06:27)
[2018-06-02] MEDS ORDERED: KCL 20 MEQ TAB (K-DUR) PO ONE (06:30)
--- NOTE | 2018-06-02 06:52 | Diagnostic Imaging Report ---
Indication: Syncopal episode, dyspnea. Comparison: None. Discussion: Single portable upright view of the chest was obtained. Normal heart size. No focal consolidation, pleural fluid, or pneumothorax. No osseous abnormality. Impression: 1. Negative portable chest. Dictated by: Dictated on workstation # [id number]
--- OUTSIDE RECORDS SUMMARY | 2018-06-02 07:17 | XMS REPORT | Continuity of Care Document ---
Author Author [facility] Address Unknown Phone Unavailable Allergies Active [...] MOFFETT GERA Ot 573.8 09/07/2015 CAMILO MOFFETT GREA Ot 575.9 09/07/2015 PAGESHAWN MOFFETT GERA Ot [...] LYN DOPARTHA Ladan Ot Z12.11 09/08/2015 LYN DORAZIAREGINLAD [place] Ot Z80.0 09/04/2016 GERA PAGE DO [...] 09/04/2016 LYN RAZIA MOFFETTREGINALD [place] Ot V72.81 [id number] CARDIOVASCULAR 09/04/2016 PARTHA LYN DO Ot V74.8 [...] 789.01 ABDOMINAL PAIN, RIGHT UPPER QUADRANT 10/07/2016 LYN RAZIA MOFFETTREGINALD [place] Ot 575.8 DIS OF GALLBLADDER NEC 10/07/2016 PARTHA LYN DO Ot V72.81 [id number] CARDIOVASCULAR 10/07/2016 PARTHA LYN DO Ot V74.8 SCREEN-BACTERIAL DIS NEC 10/07/2016 GERA PAGE DO Ot V76.12 OTH SCREEN MAMMO-MALIGN NEOPLASM OF DOMINGA 10/07/2016 GERA PAGE DO Ot Z12.31 ENCNTR SCREEN MAMMOGRAM FOR MALIGNANT NE 06/02/2018 GERA PAGE DO Ot V76.12 OTH SCREEN MAMMO-MALIGN NEOPLASM OF DOMINGA 06/02/2018 GERA PAGE DO Ot 573.8 LIVER DISORDERS NEC 06/02/2018 GERA PAGE DO Ot 575.9 DIS OF GALLBLADDER NOS 06/02/2018 GERA PAGE DO Ot 789.01 ABDOMINAL PAIN, RIGHT UPPER QUADRANT 06/02/2018 GERA PAGE DO Ot 575.8 DIS OF GALLBLADDER NEC 06/02/2018 GERA PAGE DO Ot 789.01 ABDOMINAL PAIN, RIGHT UPPER QUADRANT 06/02/2018 PARTHA LYN DO Ot 575.8 DIS OF GALLBLADDER NEC 06/02/2018 PARTHA LYN DO Ot V72.81 [id number] CARDIOVASCULAR 06/02/2018 PARTHA LYN DO Ot V74.8 SCREEN-BACTERIAL DIS NEC 06/02/2018 GERA PAGE DO Ot V76.12 OTH SCREEN MAMMO-MALIGN NEOPLASM OF DOMINGA 06/02/2018 GERA PAGE DO Ot Z12.31 ENCNTR SCREEN MAMMOGRAM FOR MALIGNANT NE Procedures There is no data. Results Test Result Range Capillary blood glucose measurement by glucometer (mass/volume) - 06/02/18 03: 02 Capillary blood glucose measurement by glucometer (mass/volume) 146 mg/dL 70-110 Complete blood count (CBC) with automated white blood cell (WBC) differential - 06/02/18 03:02 Blood leukocytes automated count (number/volume) 8.4 10*3/uL 4.3-11.0 Blood erythrocytes automated count (number/volume) 4.71 10*6/uL 4.35-5.85 Venous blood hemoglobin measurement (mass/volume) 14.5 g/dL 11.5-16.0 Blood hematocrit (volume fraction) 42 % 35-52 Automated erythrocyte mean corpuscular volume 89 [foz_us] 80-99 Automated erythrocyte mean corpuscular hemoglobin (mass per erythrocyte) 31 pg 25-34 Automated erythrocyte mean corpuscular hemoglobin concentration measurement ( mass/volume) 34 g/dL 32-36 Automated erythrocyte distribution width ratio 13.9 % 10.0-14.5 Automated blood platelet count (count/volume) 265 10*3/uL 130-400 Automated blood platelet mean volume measurement 10.0 [foz_us] 7.4-10.4 Automated blood neutrophils/100 leukocytes 47 % 42-75 Automated blood lymphocytes/100 leukocytes 40 % 12-44 Blood monocytes/100 leukocytes 8 % 0-12 Automated blood eosinophils/100 leukocytes 4 % 0-10 Automated blood basophils/100 leukocytes 1 % 0-10 Blood neutrophils automated count (number/volume) 4.0 10*3 1.8-7.8 Blood lymphocytes automated count (number/volume) 3.3 10*3 1.0-4.0 Blood monocytes automated count (number/volume) 0.7 10*3 0.0-1.0 Automated eosinophil count 0.4 10*3/uL 0.0-0.3 Automated blood basophil count (count/volume) 0.0 10*3/uL 0.0-0.1 PT panel in platelet poor plasma by coagulation assay - 06/02/18 03:02 Prothrombin time (PT) in platelet poor plasma by coagulation assay 11.6 s 12.2-14.7 INR in platelet poor plasma or blood by coagulation assay 0.9 0.8-1.4 Activated partial thromboplastin time (aPTT) in platelet poor plasma bycoagulation assay - 06/02/18 03:02 Activated partial thromboplastin time (aPTT) in platelet poor plasma bycoagulation assay 26 s 24-35 Comprehensive metabolic panel - 06/02/18 03:02 Serum or plasma sodium measurement (moles/volume) 142 mmol/L 135-145 Serum or plasma potassium measurement (moles/volume) 3.2 mmol/L 3.6-5.0 Serum or plasma chloride measurement (moles/volume) 103 mmol/L 98-107 Carbon dioxide 25 mmol/L 21-32 Serum or plasma anion gap determination (moles/volume) 14 mmol/L 5-14 Serum or plasma urea nitrogen measurement (mass/volume) 21 mg/dL 7-18 Serum or plasma creatinine measurement (mass/volume) 1.06 mg/dL 0.60-1.30 Serum or plasma urea nitrogen/creatinine mass ratio 20 NRG Serum or plasma creatinine measurement with calculation of estimated glomerular filtration rate 52 NRG Serum or plasma glucose measurement (mass/volume) 126 mg/dL 70-105 Serum or plasma calcium measurement (mass/volume) 10.2 mg/dL 8.5-10.1 Serum or plasma total bilirubin measurement (mass/volume) 0.7 mg/dL 0.1-1.0 Serum or plasma alkaline phosphatase measurement (enzymatic activity/volume) 85 U/L 40-136 Serum or plasma aspartate aminotransferase measurement (enzymatic activity/ volume) 18 U/L 5-34 Serum or plasma alanine aminotransferase measurement (enzymatic activity/volume ) 14 U/L 0-55 Serum or plasma protein measurement (mass/volume) 7.7 g/dL 6.4-8.2 Serum or plasma albumin measurement (mass/volume) 4.1 g/dL 3.2-4.5 CALCIUM CORRECTED 10.1 mg/dL 8.5-10.1 Magnesium - 06/02/18 03:02 Magnesium 2.5 mg/dL 1.8-2.4 Serum or plasma troponin i.cardiac measurement (mass/volume) - 06/02/18 03:02 Serum or plasma troponin i.cardiac measurement (mass/volume) < ng/ mL <0.30 Serum or plasma amylase measurement (enzymatic activity/volume) - 06/02/18 03: 02 Serum or plasma amylase measurement (enzymatic activity/volume) 91 U /L 25-125 Lipase - 06/02/18 03:02 Lipase 39 U/L 8-78 Serum or plasma thyrotropin measurement by detection limit <=0.05 miu/l (units/ volume) - 06/02/18 03:02 Serum or plasma thyrotropin measurement by detection limit <=0.05 miu/l (units/ volume) 2.33 u[iU]/mL 0.35-4.94 Complete urinalysis with reflex to culture - 06/02/18 04:38 Urine color determination YELLOW NRG Urine clarity determination SLIGHTLY CLOUDY NRG Urine pH measurement by test strip 7 5-9 Specific gravity of urine by test strip 1.010 1.016- 1.022 Urine protein assay by test strip, semi-quantitative NEGATIVE NEGATIVE Urine glucose detection by automated test strip NEGATIVE NEGATIVE Erythrocytes detection in urine sediment by light microscopy NEGATIVE NEGATIVE Urine ketones detection by automated test strip NEGATIVE NEGATIVE Urine nitrite detection by test strip NEGATIVE NEGATIVE Urine total bilirubin detection by test strip NEGATIVE NEGATIVE Urine urobilinogen measurement by automated test strip (mass/volume) NORMAL NORMAL Urine leukocyte esterase detection by dipstick 3+ NEGATIVE Automated urine sediment erythrocyte count by microscopy (number/high power field) NONE NRG Automated urine sediment leukocyte count by microscopy (number/high power field ) RARE NRG Bacteria detection in urine sediment by light microscopy TRACE NRG Squamous epithelial cells detection in urine sediment by light microscopy 2-5 NRG Crystals detection in urine sediment by light microscopy PRESENT NRG Casts detection in urine sediment by light microscopy NONE NRG Mucus detection in urine sediment by light microscopy NEGATIVE NRG Complete urinalysis with reflex to culture NO NRG Amorphous sediment detection in urine sediment by light microscopy LARGE [place]ILL[place] URATES NRG Encounters ACCT No. Visit Date/Time Discharge Status Pt. Type Provider Facility Loc./Unit Complaint [id number] 03/27/2014 10:36:00 03/27/2014 23:59:59 CLS Outpatient [place]TOINETTE BERMUDEZ DO [id number] 03/21/2013 10:45:00 03/21/2013 23:59:59 CLS Outpatient BERMUDEZ DO ANTOINETTE Vicki [facility] 03/12/2015 13:05:53 ACT Document Registration [id number] 04/20/2017 08:00:00 04/20/2017 23:59:59 CLS Outpatient PAUL PEREZ [facility] [id number] 09/12/2017 07:30:00 09/12/2017 23:59:59 CLS Preadmit PAGE DO, GERA [facility] RAD SCREENING [id number] 09/04/2016 10:26:00 09/04/2016 23:59:59 CLS Outpatient PAGE DO, GERA [facility] RAD SCREENING [id number] 09/07/2015 06:44:00 09/07/2015 09:18:00 DIS Outpatient PARTHA LYN DO [facility] SDC SCREENING,REFLEX [id number] 09/03/2015 05:35:00 09/03/2015 15:26:00 DIS Outpatient PARTHA LYN DO [facility] PREOP SCREENING,REFLEX [id number] 03/12/2015 13:05:00 03/12/2015 23:59:59 CLS Outpatient PAGE DO, GERA [facility] RAD SCREENING [id number] 01/08/2014 09:24:00 01/08/2014 17:45:00 DIS Outpatient PARTHA LYN DO [facility] SDC GALLSTONES [id number] 01/07/2014 11:46:00 01/07/2014 23:59:59 CLS Outpatient PARTHA LYN DO [facility] PREOP GALLSTONES [id number] 12/29/2013 09:42:00 12/29/2013 23:59:59 CLS Outpatient PAGE DO, GERA [facility] CARD ABDOMINAL PAIN RIGHT UPPER QUADRANT PAIN [id number] 12/15/2013 06:44:00 12/15/2013 23:59:59 CLS Outpatient PAGE DO, GERA [facility] RAD ABD PAIN [id number] 04/25/2013 13:47:00 04/25/2013 23:59:59 CLS Outpatient PAGE DO, GERA [facility] RAD SCREENING [id number] 06/02/2018 04:18:00 ACT Inpatient PAGE DO, GERA [facility] ICU NAUSEA [id number] 01/24/2011 10:40:00 Document Registration
[2018-06-02 07:39] LABS: BILIRUBIN,URINE NEGATIVE (NEGATIVE); CLARITY,URINE CLEAR; COLOR,URINE YELLOW; GLUCOSE, URINE (UA) NEGATIVE (NEGATIVE); KETONES,URINE NEGATIVE (NEGATIVE); LEUKOCYTE ESTERASE ,URINE 1+ (NEGATIVE); NITRITE,URINE NEGATIVE (NEGATIVE); PH,URINE 8 (5-9); PROTEIN,URINE NEGATIVE (NEGATIVE); UROBILINOGEN,URINE NORMAL (NORMAL)
[2018-06-02 07:47] LABS: BACTERIA,URINE FEW /HPF; WBC,URINE 0-2 /HPF
[2018-06-02] MEDS ORDERED: PANTOPRAZOLE 40 MG (PROTONIX) VIAL IV SCH (09:00)
--- NOTE | 2018-06-02 12:04 | Short Stay Summary-Hospitalist ---
History of Present Illness HPI/Chief Complaint CC: Syncope HPI: This is a 62-year-old female known to me from clinic visits the last 14 years once a year for hypertension and GERD who presents to the hospital by ambulance after severe syncopal episode witnessed by . She got up to go to the bathroom when her came in during his break from the [place] [employer] at 130 hours got back in bed then became nauseated and went back to the bathroom felt like she was going to vomit so her set her back down on the toilet gave her a wastebasket and she threw up a significant amount of emesis. It was at that point she suffered an episode of syncope and when she woke up she tightened all of her muscles but no incontinence reported that she did have amnesia of the event. We did discuss cardiac risk stratification last time she was seen in the clinic earlier this year considering her brother had stents placed and she has not had a cardiac workup. Carotid ultrasound and echocardiogram both have been ordered and patient will need workup per cardiology and critical care evaluation. Source: patient, family, RN/MD, old records Exam Limitations: clinical condition Date Seen 06/02/18 Time Seen by a Provider: 11:00 Attending Physician Mague Page DO PCP Mague Page DO Referring Physician Date of Admission Jun 02, 2018 at 04:18 Home Medications & Allergies Home Medications Reviewed patient Home Medication Reconciliation performed by pharmacy medication reconciliations copier field service technician and/or nursing. Patients Allergies have been reviewed. Allergies Allergies Coded Allergies NKANo Known Allergies (Verified Allergy, Unknown, 09/03/15) Past Ufdntqd-Btxhdn-Pqrzkb Hx Past Med/Social Hx: Reviewed Nursing Past Med/Soc Hx, Reviewed and Corrections made Patient Social History Marrital Status: Employed/Student: employed ([employer]) Alcohol Use: Denies Use Recreational Drug Use: No Smoking Status: Never a Smoker Former Smoker, Quit: Jun 02, 2018 Type Used: Cigarettes 2nd Hand Smoke Exposure: No Physical Abuse Screen: No Sexual Abuse: No Recent Foreign Travel: No Contact w/other who traveled: No Recent Hopitalizations: No Recent Infectious Disease Expo: No Immunizations Up To Date Pediatric: No Date of Pneumonia Vaccine: Apr 02, 2018 Date of Influenza Vaccine: Apr 02, 2018 Seasonal Allergies Seasonal Allergies: Yes Past Medical History Surgeries: Section, Gallbladder Cardiac: Hypertension Gastrointestinal: Gastroesophageal Reflux, Hiatal Hernia Loss of Vision: Denies Hearing Impairment: Denies History of Blood Disorders: No Adverse Reaction to Blood [place]: No Family History CAD Over 55 Years Old Review of Systems Constitutional: see HPI, dizziness, malaise, weakness EENTM: no symptoms reported Respiratory: no symptoms reported Cardiovascular: no symptoms reported Gastrointestinal: heartburn, loss of appetite, nausea, vomiting Genitourinary: no symptoms reported Musculoskeletal: no symptoms reported Skin: no symptoms reported Psychiatric/Neurological: Weakness Physical Exam Physical Exam Vital Signs Vital Signs - First Documented 06/02/18 02:50 Temp 98.1 Pulse 90 Resp 16 B/P (MAP) 126/99 (108) Pulse Ox 96 O2 Delivery Room Air Capillary Refill : Less Than 3 Seconds Height, Weight, BMI Height: 5'6.00" Weight: 150lbs. 0.0oz. [id number]; 24.2 BMI Method:Stated General Appearance: No Apparent Distress, WD/WN Eyes: Bilateral Eye Normal Inspection, Bilateral Eye PERRL HEENT: PERRL/EOMI, TMs Normal, Normal ENT Inspection, Pharynx Normal Neck: Full Range of Motion, Normal Inspection, Non Tender, Supple, Carotid Bruit Respiratory: Chest Non Tender, Lungs Clear, Normal Breath Sounds, No Accessory Muscle Use, No Respiratory Distress Cardiovascular: Regular Rate, Rhythm, No Edema, No Gallop, No JVD, No Murmur, Normal Peripheral Pulses Gastrointestinal: Normal Bowel Sounds, No Organomegaly, No Pulsatile Mass, Non Tender, Soft Back: Normal Inspection, No CVA Tenderness, No Vertebral Tenderness Extremity: Normal Capillary Refill, Normal Inspection, Normal Range of Motion, Non Tender, No Calf Tenderness, No Pedal Edema Neurologic/Psychiatric: Alert, Oriented x3, No Motor/Sensory Deficits, Normal Mood/Affect Skin: Normal Color, Warm/Dry Lymphatic: No Adenopathy Results Results/Procedures Labs Laboratory Tests 06/02/18 03:02 Patient resulted labs reviewed. Short Stay Diagnosis Discharge Diagnosis-Short Stay Admission Diagnosis Syncope after severe vomiting at 0130 Dizziness acute prior to syncope HTN Hypokalemia FH of CAD GERD s/p EGD revealing HH per Dr Rollins Final Discharge Diagnosis Syncope after severe vomiting at 0130 Dizziness acute prior to syncope HTN Hypokalemia FH of CAD GERD s/p EGD revealing HH per Dr Rollins Conclusion Plan Plan: Carotid USG and other testing outpt as long as ok with Dr Flower I suspect vasovagal syncope from severe emesis episode last night witnessed by at 0130 Replace potassium but that is due to HCTZ maintenance Appreciate Alcides Cooney and Ching Diagnosis/Problems Diagnosis/Problems (1) Syncope Status: Acute Qualifiers: Qualified Codes: R55 - Syncope and collapse (2) Vomiting Status: Acute Qualifiers: Qualified Codes: R11.2 - Nausea with vomiting, unspecified (3) GERD (gastroesophageal reflux disease) Status: Chronic Qualifiers: Qualified Codes: K21.9 - Gastro-esophageal reflux disease without esophagitis (4) Hypokalemia Status: Acute (5) Family history of coronary artery disease (6) Hypertension Status: Chronic Qualifiers: Qualified Codes: I10 - Essential (primary) hypertension Clinical Quality Measures DVT/VTE Risk/Contraindication: Risk Factor Score Per Nursin RFS Level Per Nursing on Admit: 0=No Risk/No VTE PPX MAGUE PAGE DO Jun 02, 2018 12:04
[2018-06-02] MEDS ORDERED: POTA10CA43 PO (12:06)
--- NOTE | 2018-06-02 12:55 | Consultation-Cardiology ---
HPI-Cardiology Cardiology Consultation: Date of Consultation 06/02/18 Date of Admission Attending Physician Mague Page DO Admitting Physician Mague Page DO Consulting Physician Gema GRUBBS MD HPI: Time Seen by a Provider: 12:10 Chief Complaint: Syncope This is a 62-year-old lady who follows with Dr. page. She has history of hypertension and GERD. She denies history of active smoking, diabetes, hyperlipidemia. Her brother had LA at the age of 60 years. No sudden cardiac in the family. She was brought to the hospital due to a syncopal episode witnessed by her . According to the patient she got up in the middle of the night to go to the restroom she was nauseated and complained of abdominal discomfort and vomited, however she passed out. According to the she passed out for 3-5 minutes. At the later part she was dazed. Also during the episode she had jerky movements of both of her upper extremities. No incontinence. No tongue biting. Patient does not have any significant history cardiac linares. Review of Systems-Cardiology Review of Systems Constitutional: As described under HPI; No As described under HPI, No no symptoms reported, No chills, No fever, No lightheadedness Eyes: No As described under HPI, No no symptoms reported, No blindness, No blurred vision, No contact lenses, No drainage, No decreased acuity, No foreign body sensation, No pain, No vision change Ears/Nose/Throat: No As described under HPI, No no symptoms reported, No chronic hearing loss, No ear discharge, No ear pain, No nasal drainage, No ulcerations Respiratory: No no symptoms reported; As described under HPI; No As described under HPI, No cough, No orthopnea, No shortness of breath, No SOB with excertion Cardiovascular: No no symptoms reported; As described under HPI; No As described under HPI, No chest pain, No edema, No irregular heart rate, No lightheadedness, No palpitations; syncope Gastrointestinal: No no symptoms reported, No As described under HPI, No abdomen distended, No abdominal pain, No blood streaked bowels, No constipation , No diarrhea, No nausea, No vomiting, No stool coloration changes Genitourinary: No As described under HPI, No burning, No dysuria, No discharge , No frequency, No flank pain, No hematuria, No urgency : Yes : No Skin: No rash, No skin related problems, No ulcerations Psychiatric/Neurological: No anxiety, No depression, No seizure, No focal weakness, No syncope Hematologic: No bleeding abnormalities TPE-Ujgfij-Kxybyt Hx Patient Social History Marrital Status: Employed/Student: employed ([employer]) Alcohol Use: Denies Use Recreational Drug Use: No Smoking Status: Never a Smoker Type Used: Cigarettes 2nd Hand Smoke Exposure: No Recent Foreign Travel: No Recent Infectious Disease Expo: No Hospitalization with Isolation: Denies Physical Abuse Screen: No Sexual Abuse: No Immunizations Up To Date Date of Pneumonia Vaccine: Apr 02, 2018 Date of Influenza Vaccine: Apr 02, 2018 Past Medical History PMH As described under Assessment. Family Medical History Family History: Coronary artery disease Allergies and Home Medications Allergies Coded Allergies: NKANo Known Allergies (Verified Allergy, Unknown, 09/03/15) Home Medications Cholecalciferol (Vitamin D3) 2,000 Unit Capsule, 2,000 UNIT PO DAILY, (Reported) Esomeprazole Magnesium 40 Mg Cap, 40 MG PO DAILY Prescribed by: PARTHA LYN on 09/07/15 0824 Fexofenadine HCl 180 Mg Tablet, 180 MG PO PRN PRN for CONGESTION, (Reported) Fluticasone Propionate 9.9 Ml [place].susp, 1 SPRAY NS PRN PRN for CONGESTION, ( Reported) Hydrochlorothiazide 25 Mg Tab, 25 MG PO DAILY, (Reported) Lactobacillus Combination No.4 1 Each Capsule, 1 EACH PO DAILY, (Reported) Potassium Chloride 10 Meq Capsule.er, 10 MEQ PO DAILY Prescribed by: MAGUE PAGE on 06/02/18 1206 Patient Home Medication List Home Medication List Reviewed: Yes Physical Exam-Cardiology Physical Exam Vital Signs/I&O 06/02/18 06/02/18 06/02/18 06/02/18 02:50 05:10 05:30 05:35 Temp 98.1 98.0 Pulse 90 77 76 79 Resp 16 17 44 B/P (MAP) 126/99 (108) 108/69 (82) 121/77 (92) Pulse Ox 96 94 95 O2 Delivery Room Air Room Air Room Air 06/02/18 06/02/18 06/02/18 06/02/18 06:00 06:00 07:00 07:00 Temp 98.9 Pulse 85 86 81 Resp 22 22 B/P (MAP) 114/78 (90) 119/77 (91) Pulse Ox 93 97 O2 Delivery Room Air Room Air 06/02/18 06/02/18 06/02/18 06/02/18 08:00 08:25 08:27 09:00 Temp 96.8 Pulse 88 81 Resp 27 26 B/P (MAP) 116/74 (88) 108/67 (81) Pulse Ox 93 O2 Delivery Room Air Room Air Room Air 06/02/18 06/02/18 06/02/18 06/02/18 10:00 11:00 11:12 12:08 Temp 97.6 Pulse 78 80 Resp 10 20 B/P (MAP) 116/69 (85) 131/76 (94) Pulse Ox 98 96 96 O2 Delivery Room Air Room Air Room Air 06/02/18 06/02/18 06/02/18 12:23 12:24 12:24 Pulse 80 83 86 B/P (MAP) 113/71 (85) 123/81 (95) 138/87 (104) Supine Supine Capillary Refill : Less Than 3 Seconds Constitutional: appears stated age; No apparent distress; well-developed, well- nourished HEENT: PERRL; No normal ENT inspection, No TMs normal, No pharynx normal, No scleral icterus (R), No scleral icterus (L), No pale conjunctivae (R), No pale conjunctivae (L), No photophobia, No TM abnormal (R), No TM abnormal (L), No pharyngeal erythema, No tonsillar exudate, No other, No discharge, No EOMI; hearing is well preserved; No hard of hearing; oral hygience is good; No ulceration, No xanthelasmas are seen Neck: No non-tender, No full range of motion, No supple, No normal inspection, No carotid bruit, No limited range of motion, No lymphadenopathy (R), No lymphadenopathy (L), No tender lateral, No tender midline, No thyromegaly, No other; carotid pulses are 2 + bilaterally; No with good upstrokes Respiratory: No accessory muscle use, No respiratory distress, No chest tender , No chest expansion is symmetric; chest is bilaterally symmetric; No lungs clear to percussion; lungs clear to auscultation; No crackles, No rhonchi, No rales, No stridor, No wheezing, No pleural rub, No other Cardiovascular: regular rate-rhythm; No irregularly irregular, No extra beats, No parasternal heave is noted, No JVD, No edema, No bradycardia, No tachycardia , No point of maximal impulse, No cardiac thrills are palpable; S1 and S2; No gallop/S3, No gallop/S4, No diastolic murmur, No systolic murmur, No friction rub, No click, No other Gastrointestinal: No tender, No soft, No round, No distended, No pulsatile mass , No organomegaly, No guarding, No rebound, No tenderness, No hernia, No mass, No audible bowel sounds, No abnormal bowel sounds, No abdominal bruits, No spleenomegaly, No other Rectal: deferred Extremities: No normal range of motion, No non-tender, No normal inspection, No pedal edema, No calf tenderness, No normal capillary refill, No pelvis stable , No calf tenderness, No inflammation, No pedal edema, No slow capillary refill , No swelling, No other, No abrasion, No clubbing, No cyanosis, No ecchymosis, No laceration, No no lower extremity edema bilateral, No significant edema, No tenderness, No wound Neurologic/Psychiatric: no motor/sensory deficits, alert, normal mood/affect, oriented x 3, power is 5/5 both on sides Skin: No normal color, No warm/dry, No cyanosis, No cool, No diaphoresis, No damp, No ecchymosis, No jaundice, No mottled, No pallor, No rash, No tattoos/ piercings, No ulcerations, No rash on exposed areas, No ulcerations on exposed areas, No other Data Review Labs Laboratory Tests 06/02/18 03:02: White Blood Count 8.4, Red Blood Count 4.71, Hemoglobin 14.5, Hematocrit 42, Mean Corpuscular Volume 89, Mean Corpuscular Hemoglobin 31, Mean Corpuscular Hemoglobin Concent 34, Red Cell Distribution Width 13.9, Platelet Count 265, Mean Platelet Volume 10.0, Neutrophils (%) (Auto) 47, Lymphocytes (%) (Auto) 40 , Monocytes (%) (Auto) 8, Eosinophils (%) (Auto) 4, Basophils (%) (Auto) 1, Neutrophils # (Auto) 4.0, Lymphocytes # (Auto) 3.3, Monocytes # (Auto) 0.7, Eosinophils # (Auto) 0.4H, Basophils # (Auto) 0.0, Prothrombin Time 11.6L, INR Comment 0.9, Activated Partial Thromboplast Time 26, Sodium Level 142, Potassium Level 3.2L, Chloride Level 103, Carbon Dioxide Level 25, Anion Gap 14 , Blood Urea Nitrogen 21H, Creatinine 1.06, Estimat Glomerular Filtration Rate 52, BUN/Creatinine Ratio 20, Glucose Level 126H, Glucometer 146H, Calcium Level 10.2H, Corrected Calcium 10.1, Magnesium Level 2.5H, Total Bilirubin 0.7, Aspartate Amino Transf (AST/SGOT) 18, Alanine Aminotransferase (ALT/SGPT) 14, Alkaline Phosphatase 85, Troponin I < 0.30, Total Protein 7.7, Albumin 4.1, Amylase Level 91, Lipase 39, TSH Marshall Testing 2.33 06/02/18 04:38: Urine Color YELLOW, Urine Clarity SLIGHTLY CLOUDY, Urine pH 7, Urine Specific [place] 1.010L, Urine Protein NEGATIVE, Urine Glucose (UA) NEGATIVE, Urine Ketones NEGATIVE, Urine Nitrite NEGATIVE, Urine Bilirubin NEGATIVE, Urine Urobilinogen NORMAL, Urine Leukocyte Esterase 3+H, Urine RBC (Auto) NEGATIVE, Urine RBC NONE, Urine WBC RARE, Urine Squamous Epithelial Cells 2-5, Urine Crystals PRESENTH, Urine Amorphous Sediment [place] URATESH, Urine Bacteria TRACE, Urine Casts NONE, Urine Mucus NEGATIVE, Urine Culture Indicated NO 06/02/18 07:30: Urine Color YELLOW, Urine Clarity CLEAR, Urine pH 8, Urine Specific [place] 1.010L, Urine Protein NEGATIVE, Urine Glucose (UA) NEGATIVE, Urine Ketones NEGATIVE, Urine Nitrite NEGATIVE, Urine Bilirubin NEGATIVE, Urine Urobilinogen NORMAL, Urine Leukocyte Esterase 1+H, Urine RBC (Auto) NEGATIVE, Urine RBC NONE , Urine WBC 0-2, Urine Crystals NONE, Urine Bacteria FEWH, Urine Casts NONE, Urine Mucus NEGATIVE, Urine Culture Indicated NO 06/02/18 10:14: Troponin I < 0.30 ECG Impression ECG Initial ECG Rhythm: Normal Sinus Initial ECG Impression: Normal A/P-Cardiology Assessment/Admission Diagnosis Syncope, Hypokalemia, RV enlargement, Plan Syncope: No clear etiology is recognized. Differential diagnosis does include seizure disorder. I will defer to Dr. Page. This could be vasovagal syncope. We checked orthostatics, however this was done after patient had received fluids overnight. Laying down blood pressure 113/71 mmHg. Heart rate 80. Sitting heart rate 83 bpm, blood pressure 123/81 mmHg. Standing heart rate 86 bpm and blood pressure 138/87 mmHg. Holter, event monitor. Nuclear stress testing. Carotid Dopplers. Echocardiogram done showed hyperdynamic LV function with mild RV enlargement. Pulmonary embolism should be ruled out with chest CTA. Hypokalemia, potassium replacement done. Thank you for your consultation. Please call me if you have any questions. Corie Grubbs MD, FACP, FACC, FSCAI, FHRS, CCDS Interventional Cardiology Cardiac Electrophysiology Vascular Medicine and Endovascular Interventions Clinical Quality Measures DVT/VTE Risk/Contraindication: Risk Factor Score Per Nursin RFS Level Per Nursing on Admit: 0=No Risk/No VTE PPX Gema GRUBBS MD Jun 02, 2018 12:55 pm
[2018-06-02] MEDS ORDERED: NS IV 1000 ML 1,000 ML IV SCH (13:00)
[2018-06-02] MEDS ORDERED: NS 100 ML (IVPB) BAG IV ONE (13:15)
[2018-06-02] MEDS ORDERED: RECEIVED CONTRAST (Hold Metformin) IV SCH (13:15)
[2018-06-02] MEDS ORDERED: IOHEXOL 350 MG/ML 150 ML (OMNIPAQUE 350) VIAL IV ONE (13:15)
--- NOTE | 2018-06-02 14:09 | Diagnostic Imaging Report ---
INDICATION: Passed out last night. Shortness of breath. PROCEDURE: CT angiography of the chest with contrast. TECHNIQUE: Multiple contiguous axial images were obtained through the chest after uneventful bolus administration of intravenous contrast. FINDINGS: There is good opacification of the aorta and pulmonary arteries following IV contrast. There is no evidence of aortic aneurysm or dissection. The pulmonary arteries are well-opacified showing no filling defects to indicate pulmonary emboli. The lungs are well-aerated. There are no consolidated infiltrates. No pleural effusion or pericardial effusion. No mediastinal or hilar adenopathy of pathologic size. IMPRESSION: 1. No evidence of pulmonary embolus. 2. No evidence of aortic aneurysm or dissection. 3. No evidence of pneumonia. Reconstructed CTA MIP acquisitions were also performed. Dictated by: Dictated on workstation # [id number]
== END 2018-06-02 14:53 | disposition home or self-care (01) ==
LOC: EDUNIT# 02:47 → ER 02:48 → UNDOADMOB 04:18 → ICU 04:18 → UNDODISOB 15:25
PROVIDERS: ADMIT Internal Medicine; ATTEND Internal Medicine
DX: R55 Syncope and collapse (principal); E87.6 Hypokalemia; E86.0 Dehydration; I11.9 Hypertensive heart disease without heart failure; K21.9 Gastro-esophageal reflux disease without esophagitis; R11.10 Vomiting, unspecified; R42 Dizziness and giddiness; Z82.49 Family history of ischemic heart disease and other diseases of the circulatory system; K44.9 Diaphragmatic hernia without obstruction or gangrene; Z79.899 Other long term (current) drug therapy
CPT/HCPCS: 36415; 70450; 71045; 71275; 80053; 81000; 82150; 82962; 83690; 83735; 84443; 84484; 85025; 85610; 85730; 93005; 93041; 93306

== ENCOUNTER → 2018-06-03 | Outpatient (CLI) | payer BC ==
[~2018-06-03] MED LIST changes: +CATHETER FLUSH 10 ML SYR IV PRN; +POTA10CA43 PO; +REGADENOSON 0.4 MG/5 ML SYR (LEXISCAN) IV ONE
[2018-06-03 11:58] VITALS: BP 145/81
[2018-06-03 12:02] VITALS: BP 160/84
[2018-06-03 12:04] VITALS: BP 139/81
--- NOTE | 2018-06-03 13:55 | Diagnostic Imaging Report ---
PROCEDURE: US carotid duplex, bilateral. Indication: Syncope, hypertension. Vomiting. TECHNIQUE: Multiple real-time grayscale images were obtained over the carotid arteries in various projections, bilaterally. Additional spectral analysis and color Doppler duplex images were also obtained. FINDINGS: Color images demonstrate mild scattered plaque formation. This is most pronounced at the level of the carotid bifurcations. Internal carotid arteries: Patent. There are no abnormally elevated velocities to suggest a hemodynamically significant stenosis. External carotid arteries: Patent. Vertebral arteries: Patent and with antegrade direction of flow. Parameters based on the consensus panel Tian-Scale and Doppler ultrasound criteria published April 2003, Radiology, Volume 229. DOPPLER (peak systolic velocity M/S Right Left CCA 79.9 .88 ICA Proximal .50 .44 ICA Mid .51 .77 ICA Distal .65 .71 RATIO .65 .88 ECA .94 .93 VERT .54 .82 IMPRESSION: 1. Carotid Doppler imaging demonstrates no findings to suggest a hemodynamically significant stenosis of the internal carotid arteries at this time. Dictated by: Dictated on workstation # [id number]
--- NOTE | 2018-06-03 16:31 | Cardiology Stress Test Report ---
Stress Test Report Type of NM Stress Test: Test Type: LEXISCAN 0.4MG/5ML Date of Procedure/Referring: Date of Procedure: Jun 03, 2018 PCP Gema Flower MD Admitting Physician Mague Sousa DO Indications: Syncope Baseline Heart Rate: 77 Baseline Blood Pressure: Blood Pressure Systolic: 139 Blood Pressure Diastolic: 81 Baseline EKG: Baseline EKG: sinus rhythm Summary & Conclusion: Summary: The patient was brought to the stress lab after informed consent was taken. Stress test was performed according to the Lexiscan protocol. 0.4 mg of IV Lexiscan was given. Low-grade exercise was performed. Baseline EKG showed sinus rhythm at 77 BPM. Initial blood pressure was 145/81 mmHg. Maximum heart rate was 125 bpm and blood pressure 164/83 mmHg. Patient did not have any chest pain, arrhythmias or ST segment changes during the stress test. 10.85 mCi of Myoview were given for rest imaging and 28.9 mCi of Myoview given for stress imaging. Transient ischemic dilatation score 0.99, EF 77 percent. Normal wall motion. Normal myocardial perfusion imaging during rest and stress. Conclusion: Pharmacological stress test was negative for ischemia. Normal LV function with no wall motion abnormalities. Normal myocardial perfusion imaging during rest and stress. Gema FLOWER MD Jun 03, 2018 4:31 pm
== END ==
LOC: CARD 10:50
PROVIDERS: ATTEND Internal Medicine Interventional Cardiology
DX: R55 Syncope and collapse (principal)
CPT/HCPCS: 78452; 93017; 93880

== ENCOUNTER 2018-07-22 08:37 | Inpatient (IN) | payer BC ==
[~2018-07-22] VITALS: Ht 180.3 cm; Wt 67.3 kg
[~2018-07-22 08:37] MED LIST changes: -CATHETER FLUSH 10 ML SYR IV PRN; -REGADENOSON 0.4 MG/5 ML SYR (LEXISCAN) IV ONE
[2018-07-22] MEDS ORDERED: NS IV 1000 ML 1,000 ML IV SCH (17:26)
[2018-07-22] MEDS ORDERED: PIPERACILLIN SODIUM/TAZOBACTAM 4.5 GM in NS (IVPB) 100 ML IV NR (17:26)
--- OUTSIDE RECORDS SUMMARY | 2018-07-22 18:09 | XMS REPORT | Continuity of Care Document ---
Author Author [facility] Address Unknown Phone Unavailable Allergies Active Description [...] 09/07/2015 BRANDON PAGE DOI Ot V76.12 09/07/2015 PAGE DO, GERA Ot 573.8 09/07/2015 PAGESHAWN MOFFETT GERA Ot 575.9 09/07/2015 PAGESHAWN MOFFETT [...] 09/04/2016 LYN RAZIA MOFFETTREGINALD Pickering Ot V72.81 [id number] CARDIOVASCULAR 09/04/2016 PARTHA LYN DO Ot V74.8 [...] 789.01 ABDOMINAL PAIN, RIGHT UPPER QUADRANT 10/07/2016 RIKI MOFFETT PARTHA Pickering Ot 575.8 DIS OF GALLBLADDER NEC 10/07/2016 PARTHA LYN DO Ot V72.81 [id number] CARDIOVASCULAR 10/07/2016 PARTHA LYN DO Ot V74.8 SCREEN-BACTERIAL DIS NEC 10/07/2016 CAMILO MOFFETT GERA Ot V76.12 OTH SCREEN MAMMO-MALIGN NEOPLASM OF DOMING[place] 10/07/2016 CAMILO MOFFETT GERA Ot Z12.31 ENCNTR SCREEN MAMMOGRAM FOR MALIGNANT NE 06/02/2018 CAMILO MOFFETT GERA Ot V76.12 OTH SCREEN MAMMO-MALIGN NEOPLASM OF DOMING[place] 06/02/2018 CAMILO MOFFETT GERA Ot 573.8 LIVER DISORDERS NEC 06/02/2018 CAMILO MOFFETT GERA Ot 575.9 DIS OF GALLBLADDER NOS 06/02/2018 CAMILO MOFFETT GERA Ot 789.01 ABDOMINAL PAIN, RIGHT UPPER QUADRANT 06/02/2018 CAMILO MOFFETT GERA Ot 575.8 DIS OF GALLBLADDER NEC 06/02/2018 CAMILO MOFFETT GERA Ot 789.01 ABDOMINAL PAIN, RIGHT UPPER QUADRANT 06/02/2018 PARTHA LYN DO Ot 575.8 DIS OF GALLBLADDER NEC 06/02/2018 PARTHA LYN DO Ot V72.81 [id number] CARDIOVASCULAR 06/02/2018 PARTHA LYN DO Ot V74.8 SCREEN-BACTERIAL DIS NEC 06/02/2018 CAMILO MOFFETT GERA Ot V76.12 OTH SCREEN MAMMO-MALIGN NEOPLASM OF DOMING[place] 06/02/2018 GERA PAGE DO Ot Z12.31 ENCNTR SCREEN MAMMOGRAM FOR MALIGNANT NE 06/02/2018 CAMILO MOFFETT GERA Ot E86.0 DEHYDRATION 06/02/2018 CAMILO MOFFETT GERA Ot E87.6 HYPOKALEMIA 06/02/2018 CAMILO MOFFETT GERA Ot I11.9 HYPERTENSIVE HEART DISEASE WITHOUT HEART 06/02/2018 CAMILO MOFFETT GERA Ot K21.9 GASTRO-ESOPHAGEAL REFLUX DISEASE WITHOUT 06/02/2018 CAMILO MOFFETT GERA Ot K44.9 DIAPHRAGMATIC HERNIA WITHOUT OBSTRUCTION 06/02/2018 BRANDON PAGE DOI Ot R11.10 VOMITING, UNSPECIFIED 06/02/2018 CAMILO MOFFETT GERA Ot R42 DIZZINESS AND GIDDINESS 06/02/2018 CAMILO MOFFETT GERA Ot R55 SYNCOPE AND COLLAPSE 06/02/2018 BRANDON PAGE DOI Ot 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 06/02/2018 CAMILO MOFFETT GERA Ot Z82.49 FAMILY HX OF ISCHEM HEART DIS AND OTH DI 06/03/2018 CAMILO MOFFETT GERA Ot V76.12 OTH SCREEN MAMMO-MALIGN NEOPLASM OF [place] 06/03/2018 CAMILO MOFFETT GERA Ot 573.8 LIVER DISORDERS NEC 06/03/2018 CAMILO MOFFETT GERA Ot 575.9 DIS OF GALLBLADDER NOS 06/03/2018 CAMILO MOFFETT GERA Ot 789.01 ABDOMINAL PAIN, RIGHT UPPER QUADRANT 06/03/2018 CAMILO MOFEFTT GERA Ot 575.8 DIS OF GALLBLADDER NEC 06/03/2018 CAMILO MOFFETT GERA Ot 789.01 ABDOMINAL PAIN, RIGHT UPPER QUADRANT 06/03/2018 LYN DO PARTHA D Ot 575.8 DIS OF GALLBLADDER NEC 06/03/2018 LYN DO PARTHA D Ot V72.81 [id number] CARDIOVASCULAR 06/03/2018 LYN DORAZIATT D Ot V74.8 SCREEN-BACTERIAL DIS NEC 06/03/2018 CAMILO MOFFETT GERA Ot V76.12 OTH SCREEN MAMMO-MALIGN NEOPLASM OF [place] 06/03/2018 CAMILO MOFFETT GERA Ot Z12.31 ENCNTR SCREEN MAMMOGRAM FOR MALIGNANT NE 06/03/2018 BRANDON PAGE DOI Ot V76.12 OTH SCREEN MAMMO-MALIGN NEOPLASM OF [place]ING[place] 06/03/2018 CAMILO MOFFETT GERA Ot 573.8 LIVER DISORDERS NEC 06/03/2018 CAMILO MOFFETT GERA Ot 575.9 DIS OF GALLBLADDER NOS 06/03/2018 CAMILO MOFFETT GERA Ot 789.01 ABDOMINAL PAIN, RIGHT UPPER QUADRANT 06/03/2018 CAMILO MOFFETT GERA Ot 575.8 DIS OF GALLBLADDER NEC 06/03/2018 CAMILO MOFFETT GERA Ot 789.01 ABDOMINAL PAIN, RIGHT UPPER QUADRANT 06/03/2018 LYN DO, PARTHA D Ot 575.8 DIS OF GALLBLADDER NEC 06/03/2018 LYN DO PARTHA D Ot V72.81 [id number]-[id number] CARDIOVASCULAR 06/03/2018 LYN PARTHA MOFFETT Ladan Ot V74.8 SCREEN-BACTERIAL DIS NEC 06/03/2018 PAGE DO, GERA Ot V76.12 OTH SCREEN MAMMO-MALIGN NEOPLASM OF DOMING[place] 06/03/2018 PAGE DO GERA Ot Z12.31 ENCNTR SCREEN MAMMOGRAM FOR MALIGNANT NE 06/05/2018 PAGE DO, GERA Ot V76.12 OTH SCREEN MAMMO-MALIGN NEOPLASM OF DOMING[place] 06/05/2018 PAGE DO GERA Ot 573.8 LIVER DISORDERS NEC 06/05/2018 PAGE DO, GERA Ot 575.9 DIS OF GALLBLADDER NOS 06/05/2018 PAGE DO, GERA Ot 789.01 ABDOMINAL PAIN, RIGHT UPPER QUADRANT 06/05/2018 PAGE DO, GERA Ot 575.8 DIS OF GALLBLADDER NEC 06/05/2018 PAGE DO, GERA Ot 789.01 ABDOMINAL PAIN, RIGHT UPPER QUADRANT 06/05/2018 LYN DORAZIATT D Ot 575.8 DIS OF GALLBLADDER NEC 06/05/2018 LYN PARTHA D Ot V72.81 [id number] CARDIOVASCULAR 06/05/2018 LYN PARTHA D Ot V74.8 SCREEN-BACTERIAL DIS NEC 06/05/2018 CAMILO MOFFETT GERA Ot V76.12 OTH SCREEN MAMMO-MALIGN NEOPLASM OF DOMINGA 06/05/2018 CAMILO MOFFETT GERA Ot Z12.31 ENCNTR SCREEN MAMMOGRAM FOR MALIGNANT NE 06/05/2018 Gema GRUBBS MD Ot R55 SYNCOPE AND COLLAPSE 06/05/2018 Gema GRUBBS MD Ot R55 SYNCOPE AND COLLAPSE 07/04/2018 Gema GRUBBS MD Ot R55 SYNCOPE AND COLLAPSE 07/16/2018 Gema GRUBBS MD Ot R55 SYNCOPE AND COLLAPSE Procedures There is no data. Results Test [...] by light microscopy L[place]GE [place] URATES NRG Complete urinalysis with reflex to culture - 06/02/18 07:30 Urine color determination YELLOW NRG Urine clarity determination CLEAR NRG Urine pH measurement by test strip 8 5-9 Specific gravity of urine by test [...] NORMAL Urine leukocyte esterase detection by dipstick 1+ NEGATIVE Automated urine sediment erythrocyte count by microscopy (number/high power field) NONE NRG Automated urine sediment leukocyte count by microscopy (number/high power field ) [HPF] NRG Bacteria detection in urine sediment by light microscopy FEW NRG Crystals detection in urine sediment by light microscopy NONE NRG Casts detection in urine sediment by light microscopy NONE NRG Mucus detection in urine sediment by light microscopy NEGATIVE NRG Complete urinalysis with reflex to culture NO NRG Serum or plasma troponin i.cardiac measurement (mass/volume) - 06/02/18 10:14 Serum or plasma troponin i.cardiac measurement (mass/volume) < ng/ mL <0.30 Serum or plasma troponin i.cardiac measurement (mass/volume) - 06/02/18 14:13 Serum or plasma troponin i.cardiac measurement (mass/volume) < ng/ mL <0.30 Encounters ACCT No. Visit Date/Time Discharge Status Pt. Type Provider Facility Loc./Unit Complaint [id number] 03/27/2014 10:36:00 03/27/2014 23:59:59 CLS Outpatient ANTOINETTE BERMUDEZ DO [id number] 03/21/2013 10:45:00 03/21/2013 23:59:59 CLS Outpatient ANTOINETTE BERMUDEZ DO [id number] 03/12/2015 13:05:53 ACT Document Registration [id number] 04/20/2017 08:00:00 04/20/2017 23:59:59 CLS Outpatient PAUL PEREZ [facility] [id number] 07/15/2018 08:30:00 07/15/2018 23:59:59 CLS Outpatient Gema GRUBBS MD [facility] CARD SYNCOPE [id number] 06/03/2018 10:50:00 06/03/2018 23:59:59 CLS Outpatient Gema GRUBBS MD [facility] CARD SYNCOPE [id number] 06/03/2018 07:47:00 06/03/2018 23:59:59 CLS Preadmit Gema GRUBBS MD [facility] RAD SYNCOPE [id number] 06/03/2018 07:45:00 06/03/2018 23:59:59 CLS Preadmit Gema GRUBBS MD [facility] CARD SYNCOPE [id number] 06/03/2018 07:43:00 06/03/2018 23:59:59 CLS Preadmit Gema GRUBBS MD [facility] CARD SYNCOPE [id number] 06/02/2018 05:25:00 06/02/2018 14:53:00 DIS Inpatient GERA PAGE DO [facility] ICU NAUSEA [id number] 09/12/2017 07:30:00 09/12/2017 23:59:59 CLS Preadmit PAGE DO, GERA [facility] RAD SCREENING [id number] 09/04/2016 10:26:00 09/04/2016 23:59:59 CLS Outpatient PAGE DO, GERA [facility] RAD SCREENING [id number] 09/07/2015 06:44:00 09/07/2015 09:18:00 DIS Outpatient RIKI MOFFETT PARTHA D [facility] SDC SCREENING,REFLEX [id number] 09/03/2015 05:35:00 09/03/2015 15:26:00 DIS Outpatient RIKI MOFFETT PARTHA D [facility] PREOP SCREENING,REFLEX [id number] 03/12/2015 13:05:00 03/12/2015 23:59:59 CLS Outpatient PAGE DO, GERA [facility] RAD SCREENING [id number] 01/08/2014 09:24:00 01/08/2014 17:45:00 DIS Outpatient RIKI MOFFETT PARTHA D [facility] SDC GALLSTONES [id number] 01/07/2014 11:46:00 01/07/2014 23:59:59 CLS Outpatient RIKI MOFFETT PARTHA D [facility] PREOP GALLSTONES [id number] 12/29/2013 09:42:00 12/29/2013 23:59:59 CLS Outpatient PAGE DO, GERA [facility] CARD ABDOMINAL PAIN RIGHT UPPER QUADRANT PAIN [id number] 12/15/2013 06:44:00 12/15/2013 23:59:59 CLS Outpatient PAGE DO, GERA [facility] RAD ABD PAIN [id number] 04/25/2013 13:47:00 04/25/2013 23:59:59 CLS Outpatient PAGE DO, GERA [facility] RAD SCREENING [id number] 01/24/2011 10:40:00 Document Registration
[2018-07-22] MEDS ORDERED: CATHETER FLUSH 10 ML SYR IV PRN (18:15)
--- NOTE | 2018-07-22 18:17 | NUR ---
SYDNEE REYES admitted to room 410-1, with an admitting diagnosis of FEVER OF UNKNOWN ORIGIN, on 07/22/18 from DIRECT ADMIT via WHEELCHAIR, accompanied by . SYDNEE REYES introduced to surroundings, call light, bed controls, phone, TV, temperature control, lights, meal times, smoking policy, visitor policy, side rail policy, bathrooms and showers. Patient Rights given to patient in the handbook. SYDNEE REYES verbalizes understanding that [facility] is not responsible for the loss or damage to any personal effects or valuables that are kept in the patients possession during their hospitalization. The following Patient Care Plans were discussed with the PATIENT: Discharge Planning, FEVER OF UNKNOWN ORIGIN and KNOWLEDGE DEFICIT. SYDNEE REYES verbalizes understanding of Interdisciplinary Patient Education. Patient and/or family were informed about the Rapid Response Team and its purpose.
--- NOTE | 2018-07-22 18:31 | Diagnostic Imaging Report ---
PA and lateral chest at 612 hours. INDICATION: Shortness of breath. FINDINGS: The heart size is within normal limits and stable when compared to 06/02/2018. In the interval since the prior exam, mild atelectasis/infiltrate has developed in the left lung base. Left upper lung and right lung are generally clear. The mediastinum is not widened. The osseous structures are intact. IMPRESSION: The appearance of the chest has worsened slightly since the prior exam as mild atelectasis/infiltrate has developed in the left lower lobe. There is no acute cardiopulmonary abnormality noted otherwise. Dictated by: Dictated on workstation # [id number]
[2018-07-22] MEDS ORDERED: ALPRAZolam 0.25 MG (XANAX) TAB PO PRN (19:00)
[2018-07-22] MEDS ORDERED: HYDROcodone/APAP 5 MG/325 MG (LORTAB) TAB PO PRN (19:00)
[2018-07-22] MEDS ORDERED: MELATONIN 3 MG TABLET PO PRN (19:00)
[2018-07-22] MEDS ORDERED: guaiFENesin/CODEINE (ROBITUSSIN AC) 10ML UDC PO PRN (19:00)
[2018-07-22] MEDS ORDERED: LOPERAMIDE 2 MG (IMODIUM) CAP PO PRN (19:00)
[2018-07-22] MEDS ORDERED: ONDANSETRON 4 MG/2 ML (SDV) Z0FRAN IVP PRN (19:00)
[2018-07-22] MEDS ORDERED: DOCUSATE SODIUM 100 MG (COLACE) CAP PO PRN (19:00)
[2018-07-22] MEDS ORDERED: fentaNYL INJECTION 100 MCG/2 ML AMP IVP PRN (19:00)
[2018-07-22] MEDS ORDERED: ONDANSETRON 4 MG (ZOFRAN) ORAL DISSOLVE TAB PO PRN (19:00)
[2018-07-22] MEDS ORDERED: diphenhydrAMINE 25 MG TAB (BENADRYL) PO PRN (19:00)
[2018-07-22] MEDS ORDERED: IBUPROFEN TABLET 200 MG TAB PO PRN (19:00)
[2018-07-22] MEDS ORDERED: CALCIUM CARBONATE 500 MG (TUMS) TAB.CHEW PO PRN (19:00)
[2018-07-22 19:04] LABS: BASOPHILS % (AUTO) 0 % (0-10); EOSINOPHILS % (AUTO) 1 % (0-10); HEMATOCRIT 39 % (35-52); HEMOGLOBIN 13.6 G/DL (11.5-16.0); LYMPHOCYTES # (AUTO) 0.5 X 10^3 (1.0-4.0); LYMPHOCYTES % (AUTO) 15 % (12-44); MEAN CORPUSCULAR HEMOGLOBIN 30 PG (25-34); MEAN CORPUSCULAR HGB CONC 35 G/DL (32-36); MEAN CORPUSCULAR VOLUME 87 FL (80-99); MONOCYTES # (AUTO) 0.2 X 10^3 (0.0-1.0); MONOCYTES % (AUTO) 6 % (0-12); NEUTROPHILS # (AUTO) 2.7 X 10^3 (1.8-7.8); NEUTROPHILS % (AUTO) 77 % (42-75); PLATELET COUNT 152 10^3/uL (130-400); RED CELL DISTRIBUTION WIDTH 12.7 % (10.0-14.5); WHITE BLOOD COUNT 3.5 10^3/uL (4.3-11.0)
[2018-07-22 19:20] LABS: ALANINE AMINOTRANSFERASE 50 U/L (0-55); ALBUMIN 3.6 GM/DL (3.2-4.5); ALKALINE PHOSPHATASE 101 U/L (40-136); BILIRUBIN,TOTAL 0.8 MG/DL (0.1-1.0); BUN/CREATININE RATIO 17; CALCIUM 9.2 MG/DL (8.5-10.1); CARBON DIOXIDE 26 MMOL/L (21-32); CHLORIDE 92 MMOL/L (98-107); CREATINE KINASE 58 U/L (29-168); CREATININE SERUM 0.84 MG/DL (0.60-1.30); GFR ESTIMATED > 60; GLUCOSE 115 MG/DL (70-105); POTASSIUM 2.8 MMOL/L (3.6-5.0); SODIUM 132 MMOL/L (135-145); TOTAL PROTEIN 7.1 GM/DL (6.4-8.2)
[2018-07-22] MEDS: ACETAMINOPHEN 500 MG TAB (TYLENOL) PO PRN (20:04)
--- NOTE | 2018-07-22 20:05 | NUR ---
TEMP 104.5 TYLENOL GIVEN AND ICE PACKS PLACED ON PATIENT
[2018-07-22 20:12] LABS: BILIRUBIN,URINE NEGATIVE (NEGATIVE); CLARITY,URINE SLIGHTLY CLOUDY; COLOR,URINE YELLOW; GLUCOSE, URINE (UA) NEGATIVE (NEGATIVE); KETONES,URINE 3+ (NEGATIVE); LEUKOCYTE ESTERASE ,URINE 1+ (NEGATIVE); NITRITE,URINE NEGATIVE (NEGATIVE); PH,URINE 6 (5-9); PROTEIN,URINE 3+ (NEGATIVE); UROBILINOGEN,URINE 4 MG/DL (NORMAL)
[2018-07-22] MEDS: RT-ALBUTEROL SULF 2.5 MG/3 ML PRE-MIX VIAL INH SCH (20:15)
[2018-07-22 20:27] VITALS: BP 122/77
--- NOTE | 2018-07-22 20:43 | Progress Note-Hospitalist ---
Progress Note This is a 62-year-old female clinic patient of [employer] for the past 15 years who presented to my office as a work in appointment due to bloody stools fever and not feeling well. I had seen her in the clinic on Sunday afternoon diagnosed her with strep pharyngitis with influenza was negative and placed her on Augmentin twice daily but patient worsened and began having bloody stools so she was put in as an urgent appointment in my clinic found to have fever and ashen coloring so she was admitted to the hospital diagnosed with left lower lobe pneumonia hypokalemia and fever of 104.3 so she was placed empirically on Zosyn and bank and IV fluids and supplemented potassium with anti-pyretics. GERA PAGE DO Jul 22, 2018 20:43
[2018-07-22 20:44] LABS: ERYTHROCYTE SEDIMENTATION RATE 61 MM/HR (0-30)
--- NOTE | 2018-07-22 20:50 | NUR ---
VANCOMYCIN DOSING: BASED ON ACTUAL BW 67.2 KG & SCR 0.8 EST CrCl 76 LOADING DOSE: 1,500 MG MAIN DOSE: 1,000 MG BID VANCOMYCIN TROUGH ORDERED FOR 07/24/18 @ 08:00 IF TROUGH IS GREATER THAN 20 HOLD 07/24/18 09:00 DOSE
[2018-07-22] MEDS ORDERED: VANCOMYCIN 1500 MG/NS 500 ML IVPB IV NR ×2 (21:00)
[2018-07-22] MEDS: POTASSIUM CHLORIDE INJ 10 MEQ in NS IV 1000 ML 1,000 ML IV SCH (21:14)
[2018-07-22] MEDS: FLUCONAZOLE 200 MG/100 ML 50 ML, EMPTY IV BAG (PVC) 1 EA IV SCH ×2 (21:15)
[2018-07-22] MEDS: MAGNESIUM 1 GM/100 ML IVPB 100 ML IV SCH ×2 (21:16→23:25)
[2018-07-22] MEDS: POTASSIUM CL 10MEQ/50ML IVPB 50 ML IV SCH ×2 (21:16→23:25)
[2018-07-22] MEDS: NYSTATIN ORAL SUSP 5 ML UDC PO SCH (21:16)
[2018-07-23] VITALS (8 sets, daily range): BP systolic 95–190; BP diastolic 59–96
[2018-07-23] MEDS: POTASSIUM CL 10MEQ/50ML IVPB 50 ML IV SCH ×6 (00:39→15:04)
[2018-07-23 01:15] LABS: HEMOGLOBIN 12.2 G/DL (11.5-16.0)
[2018-07-23] MEDS: PIPERACILLIN/TAZO 4.5 GM/NS 100 ML IV SCH ×6 (02:07→16:13)
[2018-07-23] MEDS: IBUPROFEN TABLET 200 MG TAB PO PRN ×2 (03:05→18:50)
[2018-07-23] MEDS: POTASSIUM CHLORIDE INJ 10 MEQ in NS IV 1000 ML 1,000 ML IV SCH ×3 (04:51→21:48)
[2018-07-23 06:19] LABS: BASOPHILS % (AUTO) 0 % (0-10); EOSINOPHILS # (AUTO) 0.1 10^3/uL (0.0-0.3); EOSINOPHILS % (AUTO) 2 % (0-10); HEMATOCRIT 33 % (35-52); HEMOGLOBIN 11.4 G/DL (11.5-16.0); LYMPHOCYTES % (AUTO) 26 % (12-44); MEAN CORPUSCULAR HGB CONC 35 G/DL (32-36); MEAN CORPUSCULAR VOLUME 87 FL (80-99); MEAN PLATELET VOLUME 10.9 FL (7.4-10.4); MONOCYTES # (AUTO) 0.3 X 10^3 (0.0-1.0); MONOCYTES % (AUTO) 9 % (0-12); NEUTROPHILS # (AUTO) 2.4 X 10^3 (1.8-7.8); NEUTROPHILS % (AUTO) 63 % (42-75); PLATELET COUNT 149 10^3/uL (130-400); RED CELL DISTRIBUTION WIDTH 13.2 % (10.0-14.5); WHITE BLOOD COUNT 3.8 10^3/uL (4.3-11.0)
[2018-07-23 06:21] LABS: MEAN CORPUSCULAR HEMOGLOBIN 30 PG (25-34)
[2018-07-23] MEDS: NYSTATIN ORAL SUSP 5 ML UDC PO SCH ×4 (06:29→21:47)
[2018-07-23] MEDS: RT-ALBUTEROL SULF 2.5 MG/3 ML PRE-MIX VIAL INH SCH ×4 (06:43→18:35)
[2018-07-23 06:46] LABS: ALANINE AMINOTRANSFERASE 38 U/L (0-55); ALBUMIN 2.9 GM/DL (3.2-4.5); ALKALINE PHOSPHATASE 80 U/L (40-136); BILIRUBIN,TOTAL 0.6 MG/DL (0.1-1.0); BUN/CREATININE RATIO 17; CALCIUM 7.9 MG/DL (8.5-10.1); CARBON DIOXIDE 23 MMOL/L (21-32); CHLORIDE 101 MMOL/L (98-107); CREATININE SERUM 0.72 MG/DL (0.60-1.30); GFR ESTIMATED > 60; GLUCOSE 105 MG/DL (70-105); POTASSIUM 3.1 MMOL/L (3.6-5.0); SODIUM 135 MMOL/L (135-145); TOTAL PROTEIN 5.7 GM/DL (6.4-8.2)
[2018-07-23] MEDS: VANCOMYCIN INJECTION 1,000 MG in NS (IVPB) 250 ML IV SCH ×2 (08:30→21:48)
--- NOTE | 2018-07-23 09:32 | History & Physical-Hospitalist ---
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 I had seen her in the clinic on Sunday afternoon diagnosed her with strep pharyngitis with influenza was negative and placed her on Augmentin twice daily but patient worsened and began having bloody stools so she was put in as an urgent appointment in my clinic found to have fever and ashen coloring so she was admitted to the hospital diagnosed with left lower lobe pneumonia hypokalemia and fever of 104.3 so she was placed empirically on Zosyn and bank and IV fluids and supplemented potassium with anti -pyretics. Pt doing much better today Pt is still having rectal bleeding so I updated Dr. Rollins and he will see her in consultation Colonoscopy is UTD by Dr. Rollins recently Updated her on the pneumonia and the need for replacement of potassium, magnesium, and the continue of IV fluids due to her not eating or drinking much now Pt overall feels much better and is on the road to recovery Source: patient, family Exam Limitations: no limitations Date Seen 07/23/18 Time Seen by a Provider: 09:45 Attending Physician Mague Page DO PCP Mague Page DO Referring Physician Date of Admission Jul 22, 2018 at 17:55 Home Medications & Allergies Home Medications Reviewed patient Home Medication Reconciliation performed by pharmacy medication reconciliations tool and die technician and/or nursing. Patients Allergies have been reviewed. Allergies Allergies Coded Allergies NKANo Known Allergies (Verified Allergy, Unknown, 09/03/15) Past Ngnxyut-Ocggdc-Fhllav Hx Past Med/Social Hx: Reviewed Nursing Past Med/Soc Hx, Reviewed and Corrections made Patient Social History Marrital Status: Employed/Student: employed ([employer]) Alcohol Use: Denies Use Recreational Drug Use: No Smoking Status: Never a Smoker Former Smoker, Quit: Jun 02, 2018 Type Used: Cigarettes 2nd Hand Smoke Exposure: No Physical Abuse Screen: No Sexual Abuse: No Recent Foreign Travel: No Contact w/other who traveled: No Recent Hopitalizations: No Immunizations Up To Date Pediatric: No Date of Pneumonia Vaccine: Apr 02, 2018 Date of Influenza Vaccine: Mar 19, 2018 Seasonal Allergies Seasonal Allergies: Yes Past Medical History Surgeries: Section, Gallbladder Cardiac: Hypertension, Irregular Heartbeat (maintained on [address] Flower 08/06) : No Gastrointestinal: Gastroesophageal Reflux, Hiatal Hernia Loss of Vision: Denies Hearing Impairment: Denies History of Blood Disorders: No Adverse Reaction to Blood Gardiner: No Family History Coronary artery disease CAD Over 55 Years Old Review of Systems Constitutional: see HPI, chills, diaphoresis, dizziness, fever, malaise, weakness EENTM: throat pain, throat swelling Respiratory: cough, dyspnea on exertion, hemoptysis, short of breath, wheezing Cardiovascular: no symptoms reported Gastrointestinal: diarrhea, heartburn, loss of appetite, melena, nausea Genitourinary: decreased output Musculoskeletal: no symptoms reported Skin: no symptoms reported Psychiatric/Neurological: No Symptoms Reported All Other Systems Reviewed Negative Unless Noted: Yes Physical Exam Physical Exam Vital Signs Vital Signs - First Documented 07/22/18 07/22/18 07/22/18 07/22/18 07/23/18 19:00 20:00 20:04 20:27 04:00 Temp 104.5 Pulse 125 Resp 18 B/P (MAP) 122/77 Pulse Ox 94 O2 Delivery Room Air O2 Flow Rate 2.00 Capillary Refill : Height, Weight, BMI Height: 5'11.00" Weight: 148lbs. 5.0oz. 67.545923bp; 20.7 BMI Method:Stated General Appearance: WD/WN, Anxious, Chronically ill, Moderate Distress, Other ( acutely ill, ashen) Eyes: Bilateral Eye Normal Inspection, Bilateral Eye PERRL HEENT: PERRL/EOMI, Normal ENT Inspection, Pharynx Normal, Other (dry MM) Neck: Full Range of Motion, Normal Inspection, Non Tender, Supple, Carotid Bruit Respiratory: Chest Non Tender, No Accessory Muscle Use, No Respiratory Distress , Crackles (bases), Decreased Breath Sounds Cardiovascular: Regular Rate, Rhythm, No Edema, No Gallop, No JVD, No Murmur, Normal Peripheral Pulses Gastrointestinal: Normal Bowel Sounds, No Organomegaly, No Pulsatile Mass, Non Tender, Soft Back: Normal Inspection, No CVA Tenderness, No Vertebral Tenderness Extremity: Normal Capillary Refill, Normal Inspection, Normal Range of Motion, Non Tender, No Calf Tenderness, No Pedal Edema Neurologic/Psychiatric: Alert, Oriented x3, No Motor/Sensory Deficits, Normal Mood/Affect Skin: Normal Color, Warm/Dry Lymphatic: No Adenopathy Results Results/Procedures Labs Laboratory Tests 07/22/18 18:38 07/23/18 01:05 07/23/18 05:35 Patient resulted labs reviewed. Assessment/Plan Admission Diagnosis Left lower lobe pneumonia failed Augmentin therapy Fever 104.3 Dehydration Hypokalemia Low magnesium Abnormal cardiac rhythm workup by Dr. Flower in process Plan: IV antibiotics Continue IV fluids Replace potassium Nebulizer treatments Oxygen Dr. Rollins for consultation Admission Status: Inpatient Order (span 2 midnights) Reason for Inpatient Admission: Needs IV abx for 3 days along with rectal bleeding monitoring Diagnosis/Problems Diagnosis/Problems (1) Sepsis Status: Acute Qualifiers: Sepsis type: sepsis due to unspecified organism Qualified Codes: A41.9 - Sepsis, unspecified organism (2) Fever Status: Acute Qualifiers: Fever type: unspecified Qualified Codes: R50.9 - Fever, unspecified (3) Pneumonia Status: Acute Qualifiers: Laterality: left Lung location: lower lobe of lung (4) Leukopenia Status: Acute Qualifiers: Leukopenia type: unspecified Qualified Codes: D72.819 - Decreased white blood cell count, unspecified (5) Rectal bleeding Status: Acute (6) Hypokalemia Status: Acute (7) GERD (gastroesophageal reflux disease) Status: Chronic Qualifiers: Esophagitis presence: without esophagitis Qualified Codes: K21.9 - Gastro- esophageal reflux disease without esophagitis (8) Hypertension Status: Chronic Qualifiers: Hypertension type: essential hypertension Qualified Codes: I10 - Essential (primary) hypertension Clinical Quality Measures DVT/VTE Risk/Contraindication: Risk Factor Score Per Nursin RFS Level Per Nursing on Admit: 2=Moderate ONEAL PEGUERO MEDICAL STUDENT 07/23/18 1123: History of Present Illness HPI/Chief Complaint CC: Fever, bloody stools HPI: This is 62 yo female direct admit from Dr. Page. Pt was initially seen by Dr. Page in clinic on Sunday07/19/18 for a complaint of approximately one week of fever and sore throat. The pt was diagnosed empirically with strep pharyngitis and placed on Augmentin. Rapid influenza antigen testing was negative at that time. The pt returned to Dr. Page's clinic yesterday as an urgent appointment complaining of fever and bloody stools. In the clinic her fever was 104F and Dr. Page noticed an ashen appearance so the pt was admitted to the floor for IV antibiotics, fluids, and workup. The patient states that her stools are not grossly bloody, but that she notices blood on the toilet paper after she wipes. She has a hx of constipation but has never noticed blood after wiping in the past. Source: patient, family Exam Limitations: no limitations Home Medications & Allergies Home Medications Active Scripts Medications Dose Route/Sig Max Daily Dose Days Date Category Potassium Chloride 10 Meq Capsule.er 10 Meq PO DAILY 06/02/18 Rx Nexium (Esomeprazole Magnesium) 40 Mg Cap 40 Mg PO DAILY 09/07/15 Rx Flonase Allergy Relief (Fluticasone Propionate) 9.9 Ml Everly.susp 1 Everly NS PRN PRN 09/03/15 Reported Melany Allergy (Fexofenadine HCl) 180 Mg Tablet 180 Mg PO PRN PRN 09/03/15 Reported Vitamin D-3 (Cholecalciferol (Vitamin D3)) 2,000 Unit Capsule 2,000 Unit PO DAILY 01/07/14 Reported Probiotic (Lactobacillus Combination No.4) 1 Each Capsule 1 Each PO DAILY 01/07/14 Reported Hctz (Hydrochlorothiazide) 25 Mg Tab 25 Mg PO DAILY 01/07/14 Reported Past Iduqluf-Zxofcr-Dfvwxr Hx Past Med/Social Hx: Reviewed Nursing Past Med/Soc Hx Patient Social History Marrital Status: Alcohol Use: Denies Use Recreational Drug Use: No Smoking Status: Former Smoker Type Used: Cigarettes 2nd Hand Smoke Exposure: No Physical Abuse Screen: No Sexual Abuse: No Recent Foreign Travel: No Contact w/other who traveled: No Recent Hopitalizations: No Seasonal Allergies Seasonal Allergies: Yes Past Medical History Surgeries: Section, Gallbladder Cardiac: Hypertension : No Gastrointestinal: Gastroesophageal Reflux, Hiatal Hernia History of Blood Disorders: No Adverse Reaction to Blood Gardiner: No Family History Coronary artery disease CAD Over 55 Years Old Review of Systems Constitutional: fever, malaise EENTM: throat pain; No hoarseness Respiratory: cough; No dyspnea on exertion, No hemoptysis Cardiovascular: No chest pain Gastrointestinal: No abdominal pain, No hematemesis, No heartburn, No melena, No nausea, No vomiting; other (blood on tissue following BM) Genitourinary: No dysuria Musculoskeletal: no symptoms reported Skin: no symptoms reported Psychiatric/Neurological: No Symptoms Reported Physical Exam Physical Exam General Appearance: No Apparent Distress, WD/WN Eyes: Bilateral Eye PERRL, Bilateral Eye EOMI HEENT: Moist Mucous Membranes, Pharyngeal Erythema; No Tonsillar Exudate, No Tonsillar Enlargement Neck: Full Range of Motion, Normal Inspection, Non Tender, Supple Respiratory: Chest Non Tender, Lungs Clear, No Accessory Muscle Use, No Respiratory Distress, Decreased Breath Sounds; No Rhonci, No Stridor, No Wheezing Cardiovascular: Regular Rate, Rhythm, No Edema, No Gallop, No Murmur, Normal Peripheral Pulses Gastrointestinal: Normal Bowel Sounds, No Organomegaly, No Pulsatile Mass, Non Tender, Soft Rectal: Heme Negative Stool, Deferred Back: Normal Inspection, No CVA Tenderness, No Vertebral Tenderness Extremity: Normal Capillary Refill, No Calf Tenderness, No Pedal Edema Neurologic/Psychiatric: Alert, Oriented x3, No Motor/Sensory Deficits, Normal Mood/Affect Skin: Normal Color, Warm/Dry Results Results/Procedures Imaging: Reviewed Imaging Films, Reviewed Imaging Report Assessment/Plan Admission Diagnosis Fever of 104F Hypokalemia Admission Status: Inpatient Order (span 2 midnights) Reason for Inpatient Admission: Failed outpatient treatment with Augmentin Needs IV abx, fluids and electrolyte replacement Assessment and Plan Assessment: Fever LLL PNA Rectal bleeding Hypokalemia Leukopenia Plan: Continue IV abx and fluids Continue potassium replacement (pt trended from 3.1 from 2.8 on admission) Monitor CBC Consult surgery for rectal bleeding Diagnosis/Problems Diagnosis/Problems (1) Fever Status: Acute Qualifiers: Fever type: unspecified Qualified Codes: R50.9 - Fever, unspecified (2) Pneumonia Status: Acute Qualifiers: Laterality: left Lung location: lower lobe of lung (3) Leukopenia Status: Acute Qualifiers: Leukopenia type: unspecified Qualified Codes: D72.819 - Decreased white blood cell count, unspecified (4) Rectal bleeding Status: Acute (5) Hypokalemia Status: Acute (6) GERD (gastroesophageal reflux disease) Status: Chronic Qualifiers: Esophagitis presence: without esophagitis Qualified Codes: K21.9 - Gastro- esophageal reflux disease without esophagitis (7) Hypertension Status: Chronic Qualifiers: Hypertension type: essential hypertension Qualified Codes: I10 - Essential (primary) hypertension PAGE,MAGUE DO Jul 23, 2018 09:32 ONEAL PEGUERO MEDICAL STUDENT Jul 23, 2018 11:23
[2018-07-23] MEDS ORDERED: MAGNESIUM 1 GM/100 ML IVPB 100 ML IV ONE (09:45)
[2018-07-23] MEDS ORDERED: NS IV 1000 ML 1,000 ML IV ONE (10:15)
[2018-07-23] MEDS ORDERED: VITA1CAP PO (11:40)
[2018-07-23] MEDS ORDERED: ESOM20CA58 PO (11:40)
[2018-07-23] MEDS ORDERED: HYDR25TA4 PO (11:40)
[2018-07-23] MEDS ORDERED: OMG1KC PO (11:40)
[2018-07-23] MEDS ORDERED: L.AC1CAP6 PO (11:40)
[2018-07-23] MEDS ORDERED: CHOL20002 PO (11:40)
[2018-07-23] MEDS ORDERED: AMOX1TAB12 PO (11:45)
[2018-07-23] MEDS ORDERED: AMOX500C2 PO (11:45)
[2018-07-23] MEDS ORDERED: POTA10TA36 PO (11:47)
--- NOTE | 2018-07-23 11:48 | NUR ---
SPOKE WITH THE PATIENT ABOUT HER MEDICATIONS. SHE LISTED WHAT SHE IS TAKING. IN ADDITION TO WHAT IS SHOWN ON THE EXT MED HX SHE STATES SHE TAKES POTASSIUM DAILY. I CALLED [facility] AND VERIFIED THEY LAST FILLED POTASSIUM 10MEQ DAILY #30 06-05-18. OTC MEDS: VITAMIN D 2000 IU DAILY B COMPLEX DAILY FISH OIL DAILY NEXIUM PRN PROBIOTIC DAILY FLONASE PRN VICKI PRN
[2018-07-23] MEDS: KCL 10 MEQ TAB (MICRO K) PO SCH ×3 (11:56→21:47)
[2018-07-23] MEDS: ACETAMINOPHEN 500 MG TAB (TYLENOL) PO PRN (17:49)
[2018-07-23] MEDS: FLUCONAZOLE 200 MG/100 ML 50 ML, EMPTY IV BAG (PVC) 1 EA IV SCH ×2 (18:51)
--- NOTE | 2018-07-23 21:48 | Consultation ---
History of Present Illness History of Present Illness Patient Consulted On(syed/time) 07/23/18 21:42 Date Seen by Provider: Jul 23, 2018 Time Seen by Provider: 21:42 History of Present Illness consult requested by Dr. Sousa for blood in stool. Patient is a 62-year-old female who has been having fever not been feeling well. She had a MAXIMUM TEMPERATURE 104.3. Patient was recently treated for pharyngitis on Augmentin and after beginning this began having some slight bright red blood when wiping. She states that it originally started out a little bit more was concerned but it tapered off and today she has not had any bright red blood. she states she had the blood for 3 days.Patient had a stool sample occult test which was negative. Patient is feeling better today. She's been dehydrated. She's received IV fluids. Patient hemoglobin has been followed and has dropped but most likely secondary to fluid resuscitation. Patient states that she has had fevers. She denies any abdominal pain. No other complaints at this time. She denies any sweats chills shortness of breath or chest pain. Allergies and Home Medications Allergies Coded Allergies: NKANo Known Allergies (Verified Allergy, Unknown, 09/03/15) Home Medications Amoxicillin 500 Mg Capsule, 2,000 MG PO UD PRN for DENTAL APPOINTMENT, (Reported ) TAKES 4 (500MG) CAPSULES ONE HOUR PRIOR TO DENTAL APPOINTMENTS Amoxicillin/Potassium Clav 1 Each Tablet, 1 TAB PO BID, (Reported) 7 DAY SUPPLY FILLED 07-19-18 Cholecalciferol (Vitamin D3) 2,000 Unit Capsule, 2,000 UNIT PO DAILY, (Reported) Esomeprazole Magnesium 20 Mg Capsule.dr, 20 MG PO DAILY PRN for HEARTBURN, ( Reported) Fexofenadine HCl 180 Mg Tablet, 180 MG PO DAILY PRN for ALLERGIES, (Reported) Fluticasone Propionate 9.9 Ml [place].susp, 1 SPRAY NS BID PRN for CONGESTION, ( Reported) Hydrochlorothiazide 25 Mg Tablet, 25 MG PO DAILY, (Reported) L.acidoph & Paracasei,B.lactis 1 Each Capsule, 1 CAP PO DAILY, (Reported) [place] 3 Polyunsat Fatty Acids 1,000 Mg Cap, 1,000 MG PO DAILY, (Reported) Potassium Chloride 10 Meq Tab.er.prt, 10 MEQ PO DAILY, (Reported) LAST FILLED #30 12-19-18 Vitamin B Complex 1 Each Capsule, 1 CAP PO DAILY, (Reported) Patient Home Medication List Home Medication List Reviewed: Yes Past Goxekcc-Vupnwy-Defofh Hx Patient Social History Alcohol Use: Denies Use Recreational Drug Use: No Smoking Status: Never a Smoker Former Smoker, Quit: Jun 02, 2018 Type Used: Cigarettes 2nd Hand Smoke Exposure: No Recent Foreign Travel: No Contact w/Someone Who Travel: No Recent Hopitalizations: No Physical Abuse Screen: No Sexual Abuse: No Immunizations Up To Date PED Vaccines UTD: No Date of Pneumonia Vaccine: Apr 02, 2018 Date of Influenza Vaccine: Mar 19, 2018 Seasonal Allergies Seasonal Allergies: Yes Surgeries History of Surgeries: Yes Surgeries: Section, Gallbladder Respiratory History of Respiratory Disorde: No Cardiovascular Cardiac Disorders: Hypertension, Irregular Heartbeat (maintained on [address] Flower 08/06) Neurological History of Neurological Disord: No Reproductive System : No Genitourinary History of Genitourinary Disor: No Gastrointestinal History of Gastrointestinal Di: Yes Gastrointestinal Disorders: Gastroesophageal Reflux, Hiatal Hernia Musculoskeletal History of Musculoskeletal Dis: No Endocrine History of Endocrine Disorders: No HEENT History of HEENT Disorders: No Loss of Vision: Denies Hearing Impairment: Denies Cancer History of Cancer: No Psychosocial History of Psychiatric Problem: No Integumentary History of Skin or Integumenta: No Blood Transfusions History of Blood Disorders: No Adverse Reaction to a Blood Tr: No Family Medical History Significant Family History: CAD Over 55 Years Old Family Medial History: Coronary artery disease Review of Systems-General Constitutional: see HPI, fever EENTM: see HPI Respiratory: cough Gastrointestinal: no symptoms reported (except small amounts of bright red blood when wiping), see HPI Genitourinary: no symptoms reported Musculoskeletal: no symptoms reported Skin: no symptoms reported Psychiatric/Neurological: No Symptoms Reported Physical Exam-General Problems Physical Exam Vital Signs Vital Signs - First Documented 07/22/18 07/22/18 07/22/18 07/22/18 07/23/18 19:00 20:00 20:04 20:27 04:00 Temp 104.5 Pulse 125 Resp 18 B/P (MAP) 122/77 Pulse Ox 94 O2 Delivery Room Air O2 Flow Rate 2.00 Capillary Refill : General Appearance: no apparent distress HEENT: PERRL/EOMI Neck: full range of motion, supple Respiratory: chest non-tender, no respiratory distress, no accessory muscle use Cardiovascular: regular rate, rhythm Gastrointestinal: non tender, soft, no organomegaly Rectal: normal exam, normal rectal tone; No mass, No tenderness Back: normal inspection Extremities: non-tender Neurologic/Psychiatric: alert, normal mood/affect, oriented x 3 Skin: normal color, warm/dry Lymphatic: no adenopathy Data Review Labs Laboratory Tests 07/23/18 01:05: Hemoglobin 12.2, Hematocrit 35 07/23/18 05:35: Hemoglobin 11.4L, Hematocrit 33L, White Blood Count 3.8L, Red Blood Count 3.74L , Mean Corpuscular Volume 87, Mean Corpuscular Hemoglobin 30, Mean Corpuscular Hemoglobin Concent 35, Red Cell Distribution Width 13.2, Platelet Count 149, Mean Platelet Volume 10.9H, Neutrophils (%) (Auto) 63, Lymphocytes (%) (Auto) 26 , Monocytes (%) (Auto) 9, Eosinophils (%) (Auto) 2, Basophils (%) (Auto) 0, Neutrophils # (Auto) 2.4, Lymphocytes # (Auto) 1.0, Monocytes # (Auto) 0.3, Eosinophils # (Auto) 0.1, Basophils # (Auto) 0.0, Sodium Level 135, Potassium Level 3.1L, Chloride Level 101, Carbon Dioxide Level 23, Anion Gap 11, Blood Urea Nitrogen 12, Creatinine 0.72, Estimat Glomerular Filtration Rate > 60, BUN/ Creatinine Ratio 17, Glucose Level 105, Calcium Level 7.9L, Corrected Calcium 8.8, Magnesium Level 2.5H, Total Bilirubin 0.6, Aspartate Amino Transf (AST/SGOT ) 48H, Alanine Aminotransferase (ALT/SGPT) 38, Alkaline Phosphatase 80, Total Protein 5.7L, Albumin 2.9L 07/23/18 09:48: Stool Occult Blood Immunoassay NEGATIVE Microbiology 07/22/18 Blood Culture - Preliminary, Resulted No growth 07/22/18 Influenza Types A,B Antigen (ANABEL) - Final, Complete Assessment/Plan Assessment/Plan Assessment/Plan bright red blood per rectum Left lower lobe pneumonia Fever Patient stool sample Hemoccult negative. She is not having any bleeding at this time. On rectal exam I don't see any blood as well. Continue to follow hemoglobin. Patient with left lower lobe pneumonia and fever continue to medically manage. We'll continue to follow. Patient if continues to have bleeding would recommend repeating colonoscopy. Could be done as outpatient as well. Patient agreement plan. Clinical Quality Measures DVT/VTE Risk/Contraindication: Risk Factor Score Per Nursin RFS Level Per Nursing on Admit: 2=Moderate PARTHA LYN DO Jul 23, 2018 21:48
[2018-07-24] MEDS: PIPERACILLIN/TAZO 4.5 GM/NS 100 ML IV SCH ×8 (00:27→23:31)
[2018-07-24 04:00] VITALS: BP 111/64
[2018-07-24] MEDS: NYSTATIN ORAL SUSP 5 ML UDC PO SCH ×4 (04:57→20:05)
[2018-07-24] MEDS: POTASSIUM CHLORIDE INJ 10 MEQ in NS IV 1000 ML 1,000 ML IV SCH ×3 (06:51→21:30)
[2018-07-24] MEDS: RT-ALBUTEROL SULF 2.5 MG/3 ML PRE-MIX VIAL INH SCH ×4 (07:13→19:09)
[2018-07-24 08:00] VITALS: BP 131/77
[2018-07-24] MEDS ORDERED: TROUGH ORDER-PHARMACY XX NR (08:00)
[2018-07-24 08:30] VITALS: BP 131/77
[2018-07-24 08:45] LABS: BASOPHILS % (AUTO) 1 % (0-10); EOSINOPHILS # (AUTO) 0.2 10^3/uL (0.0-0.3); EOSINOPHILS % (AUTO) 3 % (0-10); HEMATOCRIT 35 % (35-52); HEMOGLOBIN 11.9 G/DL (11.5-16.0); LYMPHOCYTES # (AUTO) 1.5 X 10^3 (1.0-4.0); LYMPHOCYTES % (AUTO) 24 % (12-44); MEAN CORPUSCULAR HEMOGLOBIN 30 PG (25-34); MEAN CORPUSCULAR HGB CONC 34 G/DL (32-36); MEAN CORPUSCULAR VOLUME 89 FL (80-99); MEAN PLATELET VOLUME 10.7 FL (7.4-10.4); MONOCYTES # (AUTO) 0.5 X 10^3 (0.0-1.0); MONOCYTES % (AUTO) 8 % (0-12); NEUTROPHILS # (AUTO) 3.9 X 10^3 (1.8-7.8); NEUTROPHILS % (AUTO) 65 % (42-75); PLATELET COUNT 173 10^3/uL (130-400); RED CELL DISTRIBUTION WIDTH 13.7 % (10.0-14.5); WHITE BLOOD COUNT 6.1 10^3/uL (4.3-11.0)
--- NOTE | 2018-07-24 08:53 | NUR ---
CRITICAL CALL FROM LAB ON V[facility] TROUGH OF 30.1. MESSAGED DR. PAGE. WAITING FOR ORDERS.
[2018-07-24 08:56] LABS: ALBUMIN 3.1 GM/DL (3.2-4.5); BILIRUBIN,TOTAL 0.5 MG/DL (0.1-1.0); CALCIUM 8.6 MG/DL (8.5-10.1); CREATININE SERUM 1.65 MG/DL (0.60-1.30); POTASSIUM 3.1 MMOL/L (3.6-5.0)
--- NOTE | 2018-07-24 09:07 | NUR ---
order to d/omari degroot received
--- NOTE | 2018-07-24 09:11 | Progress Note ---
Subjective Date Seen by a Provider: Jul 24, 2018 Time Seen by a Provider: 09:08 Subjective/Events-last exam feeling better this morning. No blood per rectum. hgb stable. tolerating diet. no new complaints. afebrile this morning. Focused Exam Lactate Level 07/22/18 18:38: Lactic Acid Level 1.11 Objective Exam Vital Signs Date Time Temp Pulse Resp B/P (MAP) Pulse Ox O2 Delivery O2 Flow Rate FiO2 07/24/18 07:13 90 Room Air 07/24/18 07:00 78 07/24/18 06:47 97.2 07/24/18 04:00 97.4 66 18 111/64 (80) 97 Room Air 07/24/18 01:00 71 07/23/18 23:19 97.9 81 18 98/64 (75) 95 Room Air 07/23/18 20:15 99.8 99 17 95/59 (71) 96 Room Air 07/23/18 20:00 Room Air 07/23/18 19:20 99.8 07/23/18 19:00 116 07/23/18 18:50 102.1 07/23/18 18:36 92 Room Air 07/23/18 18:31 102.1 07/23/18 18:17 102.1 07/23/18 17:53 102.8 07/23/18 17:49 103.4 07/23/18 16:27 103.4 109 16 116/64 (81) 90 Room Air 2.00 07/23/18 15:31 90 Room Air 07/23/18 13:04 107 07/23/18 12:00 98.5 111 21 128/81 (97) 94 Nasal Cannula 2.00 07/23/18 10:56 Room Air I & O 07/24/18 07:00 Intake Total 2580 ml Output Total 2450 ml Balance 130 ml Capillary Refill : General Appearance: No Apparent Distress, WD/WN HEENT: PERRL/EOMI, Normal ENT Inspection, Pharynx Normal, Other (dry MM) Neck: Normal Inspection, Non Tender, Supple Respiratory: Chest Non Tender, No Accessory Muscle Use, No Respiratory Distress , Crackles (bases), Decreased Breath Sounds Cardiovascular: Regular Rate, Rhythm Gastrointestinal: non tender, soft, no organomegaly Extremity: Normal Capillary Refill, Normal Inspection, Non Tender, No Calf Tenderness, No Pedal Edema Neurologic/Psychiatric: Alert, Oriented x3, No Motor/Sensory Deficits, Normal Mood/Affect Skin: Normal Color, Warm/Dry Lymphatic: No Adenopathy Results Lab Laboratory Tests 07/23/18 09:48: Stool Occult Blood Immunoassay NEGATIVE 07/24/18 07:55: White Blood Count 6.1, Red Blood Count 3.96L, Hemoglobin 11.9, Hematocrit 35, Mean Corpuscular Volume 89, Mean Corpuscular Hemoglobin 30, Mean Corpuscular Hemoglobin Concent 34, Red Cell Distribution Width 13.7, Platelet Count 173, Mean Platelet Volume 10.7H, Neutrophils (%) (Auto) 65, Lymphocytes (%) (Auto) 24 , Monocytes (%) (Auto) 8, Eosinophils (%) (Auto) 3, Basophils (%) (Auto) 1, Neutrophils # (Auto) 3.9, Lymphocytes # (Auto) 1.5, Monocytes # (Auto) 0.5, Eosinophils # (Auto) 0.2, Basophils # (Auto) 0.0, Sodium Level 141, Potassium Level 3.1L, Carbon Dioxide Level 20L, Anion Gap 10, Blood Urea Nitrogen 16, Creatinine 1.65H, Estimat Glomerular Filtration Rate 31, BUN/Creatinine Ratio 10 , Glucose Level 122H, Calcium Level 8.6, Corrected Calcium 9.3, Total Bilirubin 0.5, Aspartate Amino Transf (AST/SGOT) 54H, Alanine Aminotransferase (ALT/SGPT) 39, Alkaline Phosphatase 79, Total Protein 6.0L, Albumin 3.1L, Vancomycin Level Trough 30.1*H Microbiology 07/22/18 Blood Culture - Preliminary, Resulted No growth 07/22/18 Influenza Types A,B Antigen (ANABEL) - Final, Complete Assessment/Plan Assessment/Plan Assessment/Plan bright red blood per rectum Left lower lobe pneumonia Fever Patient stool sample Hemoccult negative. She is not having any bleeding at this time. Hgb stable. Patient with left lower lobe pneumonia and fever continue to medically manage. We'll continue to follow. Patient discussed since bleeding would recommend colonoscopy that could be done as outpatient. Patient agreement plan. Clinical Quality Measures DVT/VTE Risk/Contraindication: Risk Factor Score Per Nursin RFS Level Per Nursing on Admit: 2=Moderate PARTHA LYN DO Jul 24, 2018 09:11
--- NOTE | 2018-07-24 09:14 | Pulmonary Consultation ---
History of Present Illness History of Present Illness Date of Consultation 07/24/18 09:10 Time Seen by Provider: 09:10 Date of Admission History of Present Illness 62yo presented to ED as direct admit secondary to fever and pharyngitis. She was treated with Augmentin. Pt has also started having bloody stools, fever, and body aches. After hospital admission pt was found to have LLL pneumonia, hypokalemia and fever of 104.3. Dr. Rollins was consulted secondary to hematochezia. I am consulted for pulmonary management. Allergies and Home Medications Allergies Coded Allergies: Dick Known Allergies (Verified Allergy, Unknown, 09/03/15) Home Medications Amoxicillin 500 Mg Capsule, 2,000 MG PO UD PRN for DENTAL APPOINTMENT, (Reported ) TAKES 4 (500MG) CAPSULES ONE HOUR PRIOR TO DENTAL APPOINTMENTS Amoxicillin/Potassium Clav 1 Each Tablet, 1 TAB PO BID, (Reported) 7 DAY SUPPLY FILLED 07-19-18 Cholecalciferol (Vitamin D3) 2,000 Unit Capsule, 2,000 UNIT PO DAILY, (Reported) Esomeprazole Magnesium 20 Mg Capsule.dr, 20 MG PO DAILY PRN for HEARTBURN, ( Reported) Fexofenadine HCl 180 Mg Tablet, 180 MG PO DAILY PRN for ALLERGIES, (Reported) Fluticasone Propionate 9.9 Ml [place].susp, 1 SPRAY NS BID PRN for CONGESTION, ( Reported) Hydrochlorothiazide 25 Mg Tablet, 25 MG PO DAILY, (Reported) L.acidoph & Paracasei,B.lactis 1 Each Capsule, 1 CAP PO DAILY, (Reported) [place] 3 Polyunsat Fatty Acids 1,000 Mg Cap, 1,000 MG PO DAILY, (Reported) Potassium Chloride 10 Meq Tab.er.prt, 10 MEQ PO DAILY, (Reported) LAST FILLED #30 06-05-18 Vitamin B Complex 1 Each Capsule, 1 CAP PO DAILY, (Reported) Past Hmlymup-Olhigi-Gpgnhf Hx Past Med/Social Hx: Reviewed Nursing Past Med/Soc Hx, Reviewed and Corrections made Patient Social History Alcohol Use: Denies Use Recreational Drug Use: No Smoking Status: Never a Smoker Type Used: Cigarettes Former Smoker, Quit: Jun 02, 2018 2nd Hand Smoke Exposure: No Recent Foreign Travel: No Contact w/Someone Who Travel: No Recent Hopitalizations: No Immunizations Up To Date PED Vaccines UTD: No Date of Pneumonia Vaccine: Apr 02, 2018 Date of Influenza Vaccine: Mar 19, 2018 Seasonal Allergies Seasonal Allergies: Yes Past Medical History Surgeries: Yes Section, Gallbladder Respiratory: No Hypertension, Irregular Heartbeat (maintained on [address] Flower ) Neurological: No : No Genitourinary: No Gastrointestinal: Yes Gastroesophageal Reflux, Hiatal Hernia Musculoskeletal: No Endocrine: No HEENT: No Loss of Vision: Denies Hearing Impairment: Denies Cancer: No Psychosocial: No Integumentary: No Blood Disorders: No Adverse Reaction/Blood Tranf: No Family Medical History Coronary artery disease CAD Over 55 Years Old Sepsis Event Evaluation Height, Weight, BMI Height: 5'11.00" Weight: 148lbs. 5.0oz. 67.448803fn; 20.7 BMI Method:Stated Exam Exam Vital Signs Date Time Temp Pulse Resp B/P (MAP) Pulse Ox O2 Delivery O2 Flow Rate FiO2 07/24/18 07:13 90 Room Air 07/24/18 07:00 78 07/24/18 06:47 97.2 07/24/18 04:00 97.4 66 18 111/64 (80) 97 Room Air 07/24/18 01:00 71 07/23/18 23:19 97.9 81 18 98/64 (75) 95 Room Air 07/23/18 20:15 99.8 99 17 95/59 (71) 96 Room Air 07/23/18 20:00 Room Air 07/23/18 19:20 99.8 07/23/18 19:00 116 07/23/18 18:50 102.1 07/23/18 18:36 92 Room Air 07/23/18 18:31 102.1 07/23/18 18:17 102.1 07/23/18 17:53 102.8 07/23/18 17:49 103.4 07/23/18 16:27 103.4 109 16 116/64 (81) 90 Room Air 2.00 07/23/18 15:31 90 Room Air 07/23/18 13:04 107 07/23/18 12:00 98.5 111 21 128/81 (97) 94 Nasal Cannula 2.00 07/23/18 10:56 Room Air I & O 07/24/18 07:00 Intake Total 2580 ml Output Total 2450 ml Balance 130 ml Height & Weight Height: 5'11.00" Weight: 148lbs. 5.0oz. 67.908124hk; 20.7 BMI Method:Stated General Appearance: WD/WN, Anxious, Chronically ill, Moderate Distress, Other ( acutely ill, ashen) HEENT: PERRL/EOMI, Normal ENT Inspection, Pharynx Normal, Other (dry MM) Neck: Full Range of Motion, Normal Inspection, Non Tender, Supple, Carotid Bruit Respiratory: Chest Non Tender, No Accessory Muscle Use, No Respiratory Distress , Crackles (bases), Decreased Breath Sounds Cardiovascular: Regular Rate, Rhythm, No Edema, No Gallop, No JVD, No Murmur, Normal Peripheral Pulses Gastrointestinal: non tender, soft, no organomegaly Extremity: Normal Capillary Refill, Normal Inspection, Normal Range of Motion, Non Tender, No Calf Tenderness, No Pedal Edema Neurologic/Psychiatric: Alert, Oriented x3, No Motor/Sensory Deficits, Normal Mood/Affect Skin: Normal Color, Warm/Dry Lymphatic: No Adenopathy Results Lab Laboratory Tests 07/22/18 18:38 07/23/18 01:05 07/23/18 05:35 07/24/18 07:55 Assessment/Plan Assessment/Plan PNA RLL - failed out patient treatment -Martinez cultures pending -Continue Abx Zosyn -IVF ARF -IVF Rectal bleeding -Dr. Rollins is consulted JAYCE ANDERSON DO Jul 24, 2018 09:13
[2018-07-24] MEDS: KCL 10 MEQ TAB (MICRO K) PO SCH ×4 (09:39→20:05)
[2018-07-24] MEDS: POTASSIUM CL 10MEQ/50ML IVPB 50 ML IV SCH ×4 (09:39→13:35)
--- NOTE | 2018-07-24 09:48 | Progress Note-Hospitalist ---
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 I had seen her in the clinic on Sunday afternoon diagnosed her with strep pharyngitis with influenza was negative and placed her on Augmentin twice daily but patient worsened and began having bloody stools so she was put in as an urgent appointment in my clinic found to have fever and ashen coloring so she was admitted to the hospital diagnosed with left lower lobe pneumonia hypokalemia and fever of 104.3 so she was placed empirically on Zosyn and bank and IV fluids and supplemented potassium with anti -pyretics. Pt doing much better today Pt is still having rectal bleeding so I updated Dr. Rollins and he will see her in consultation Colonoscopy is UTD by Dr. Rolilns recently Updated her on the pneumonia and the need for replacement of potassium, magnesium, and the continue of IV fluids due to her not eating or drinking much now Pt overall feels much better and is on the road to recovery Subjective/Events-last exam Pt doing much better but Creatinine increased to 1.6, will maintain IV fluids for now Will initiate Potassium Supplementation IV Overall doing well and ambulating well No more bloody stools Likely will DC tomorrow or may wait until Sunday Focused Exam Lactate Level 07/22/18 18:38: Lactic Acid Level 1.11 Objective Exam Vital Signs Vital Signs Date Time Temp Pulse Resp B/P (MAP) Pulse Ox O2 Delivery O2 Flow Rate FiO2 07/24/18 19:11 99 Room Air 07/24/18 16:04 98.7 108 18 132/83 (99) 07/23/18 16:27 2.00 Capillary Refill : General Appearance: No Apparent Distress, WD/WN, Anxious, Chronically ill, Other (acutely ill, ashen now resolved) HEENT: PERRL/EOMI, Normal ENT Inspection, Pharynx Normal, Other (dry MM) Neck: Full Range of Motion, Normal Inspection, Non Tender, Supple, Carotid Bruit Respiratory: Chest Non Tender, No Accessory Muscle Use, No Respiratory Distress , Crackles (bases), Decreased Breath Sounds Cardiovascular: Regular Rate, Rhythm, No Edema, No Gallop, No JVD, No Murmur, Normal Peripheral Pulses Gastrointestinal: Normal Bowel Sounds, No Organomegaly, No Pulsatile Mass, Non Tender, Soft Rectal: Heme Negative Stool, Deferred Back: Normal Inspection, No CVA Tenderness, No Vertebral Tenderness Extremity: Normal Capillary Refill, Normal Inspection, Normal Range of Motion, Non Tender, No Calf Tenderness, No Pedal Edema Neurologic/Psychiatric: Alert, Oriented x3, No Motor/Sensory Deficits, Normal Mood/Affect Skin: Normal Color, Warm/Dry Lymphatic: No Adenopathy Results/Procedures Lab Laboratory Tests 07/24/18 07:55 Patient resulted labs reviewed. Imaging: Reviewed Imaging Films, Reviewed Imaging Report Assessment/Plan Assessment and Plan Assess & Plan/Chief Complaint Assessment: Fever LLL PNA Rectal bleeding Hypokalemia Leukopenia Plan: Continue IV abx and fluids Continue potassium replacement Monitor CBC Consult surgery for rectal bleeding Diagnosis/Problems Diagnosis/Problems (1) Sepsis Status: Resolved Qualifiers: Sepsis type: sepsis due to unspecified organism Qualified Codes: A41.9 - Sepsis, unspecified organism Resolution Date/Time: 07/24/18 @ 19:54 (2) Fever Status: Acute Qualifiers: Fever type: unspecified Qualified Codes: R50.9 - Fever, unspecified (3) Pneumonia Status: Acute Qualifiers: Laterality: left Lung location: lower lobe of lung (4) Leukopenia Status: Acute Qualifiers: Leukopenia type: unspecified Qualified Codes: D72.819 - Decreased white blood cell count, unspecified (5) Rectal bleeding Status: Acute (6) Hypokalemia Status: Acute (7) GERD (gastroesophageal reflux disease) Status: Chronic Qualifiers: Esophagitis presence: without esophagitis Qualified Codes: K21.9 - Gastro- esophageal reflux disease without esophagitis (8) Hypertension Status: Chronic Qualifiers: Hypertension type: essential hypertension Qualified Codes: I10 - Essential (primary) hypertension (9) Renal insufficiency Status: Acute Clinical Quality Measures DVT/VTE Risk/Contraindication: Risk Factor Score Per Nursin RFS Level Per Nursing on Admit: 2=ONEAL Coughlin MEDICAL STUDENT 07/24/18 1600: Subjective HPI/CC On Admission Date Seen by Provider: Jul 24, 2018 Time Seen by Provider: 11:30 CC: Fever, bloody stools HPI: This is 62 yo female direct admit from Dr. Page. Pt was initially seen by Dr. Page in clinic on Sunday07/19/18 for a complaint of approximately one week of fever and sore throat. The pt was diagnosed empirically with strep pharyngitis and placed on Augmentin. Rapid influenza antigen testing was negative at that time. The pt returned to Dr. Page's clinic yesterday as an urgent appointment complaining of fever and bloody stools. In the clinic her fever was 104F and Dr. Page noticed an ashen appearance so the pt was admitted to the floor for IV antibiotics, fluids, and workup. The patient states that her stools are not grossly bloody, but that she notices blood on the toilet paper after she wipes. She has a hx of constipation but has never noticed blood after wiping in the past. Subjective/Events-last exam Pt still feels like she is improving Denies pain Continues to have daily BM and urination, no complaints Blood on after wiping is not worsening Review of Systems General: No Chills HEENT: No Head Aches Pulmonary: No Cough Cardiovascular: No: Chest Pain Gastrointestinal: No: Abdominal Pain Genitourinary: No Dysuria Neurological: No: Weakness Objective Exam General Appearance: No Apparent Distress, WD/WN HEENT: PERRL/EOMI, Normal ENT Inspection Respiratory: Chest Non Tender, Lungs Clear, Normal Breath Sounds, No Accessory Muscle Use, No Respiratory Distress Cardiovascular: Regular Rate, Rhythm, No Edema, No Murmur, Normal Peripheral Pulses Gastrointestinal: Normal Bowel Sounds, Non Tender, Soft Rectal: Deferred Back: No CVA Tenderness Extremity: Normal Capillary Refill, No Calf Tenderness Neurologic/Psychiatric: Alert, Oriented x3, No Motor/Sensory Deficits, Normal Mood/Affect Skin: Normal Color, Warm/Dry Assessment/Plan Assessment and Plan Assess & Plan/Chief Complaint Assessment: PNA failed outpatient tx w/ Augmentin BRBPR ASHLEE, most likely due to IV Vancomycin Leukopenia, resolved Hypokalemia Hypomagnesemia Plan: Stop IV vancomycin, continue Zosyn Encouraged pt to walk and continue to use IS Mycoplasma serology still pending Home tomorrow Diagnosis/Problems Diagnosis/Problems (1) Acute kidney injury Status: Acute (2) Rectal bleeding Status: Acute (3) GERD (gastroesophageal reflux disease) Status: Chronic Qualifiers: Esophagitis presence: without esophagitis Qualified Codes: K21.9 - Gastro- esophageal reflux disease without esophagitis (4) Hypertension Status: Chronic Qualifiers: Hypertension type: essential hypertension Qualified Codes: I10 - Essential (primary) hypertension (5) Pneumonia Status: Acute Qualifiers: Laterality: left Lung location: lower lobe of lung (6) Fever Status: Acute Qualifiers: Fever type: unspecified Qualified Codes: R50.9 - Fever, unspecified (7) Hypokalemia Status: Acute (8) Family history of coronary artery disease GERA PAGE DO Jul 24, 2018 09:48 ONEAL PEGUERO MEDICAL STUDENT Jul 24, 2018 16:00
[2018-07-24 10:10] LABS: BILIRUBIN,URINE NEGATIVE (NEGATIVE); GLUCOSE, URINE (UA) NEGATIVE (NEGATIVE); KETONES,URINE NEGATIVE (NEGATIVE); LEUKOCYTE ESTERASE ,URINE NEGATIVE (NEGATIVE); NITRITE,URINE NEGATIVE (NEGATIVE); PH,URINE 5 (5-9); PROTEIN,URINE 1+ (NEGATIVE); UROBILINOGEN,URINE NORMAL (NORMAL)
[2018-07-24 10:28] LABS: BACTERIA,URINE TRACE /HPF; CLARITY,URINE CLEAR; COLOR,URINE YELLOW; SQUAMOUS EPITHELIAL CELL,UR RARE /HPF
[2018-07-24 12:00] VITALS: BP 116/76
[2018-07-24 16:04] VITALS: BP 132/83
--- NOTE | 2018-07-24 16:27 | NUR ---
Pt is [employer] and prays the rosary but has not been attending often enough to feel comfortable with Communion. Dye Range Tender offered prayer and blessing.
[2018-07-24 20:00] VITALS: BP 121/77
[2018-07-24] MEDS: FLUCONAZOLE 200 MG/100 ML 50 ML, EMPTY IV BAG (PVC) 1 EA IV SCH ×2 (20:11)
[2018-07-24] MEDS: IBUPROFEN TABLET 200 MG TAB PO PRN (23:30)
[2018-07-25] VITALS: BP 129/79
[2018-07-25] MEDS: POTASSIUM CHLORIDE INJ 10 MEQ in NS IV 1000 ML 1,000 ML IV SCH ×2 (01:34→14:07)
[2018-07-25 04:00] VITALS: BP 135/86
--- NOTE | 2018-07-25 04:13 | NUR ---
Patient refuses chest xray.
[2018-07-25] MEDS: NYSTATIN ORAL SUSP 5 ML UDC PO SCH ×2 (06:09→14:04)
[2018-07-25 06:54] LABS: BASOPHILS % (AUTO) 1 % (0-10); EOSINOPHILS # (AUTO) 0.4 10^3/uL (0.0-0.3); EOSINOPHILS % (AUTO) 8 % (0-10); HEMATOCRIT 32 % (35-52); LYMPHOCYTES # (AUTO) 1.7 X 10^3 (1.0-4.0); LYMPHOCYTES % (AUTO) 33 % (12-44); MEAN CORPUSCULAR HEMOGLOBIN 30 PG (25-34); MEAN CORPUSCULAR HGB CONC 34 G/DL (32-36); MEAN CORPUSCULAR VOLUME 90 FL (80-99); MEAN PLATELET VOLUME 9.9 FL (7.4-10.4); MONOCYTES # (AUTO) 0.5 X 10^3 (0.0-1.0); MONOCYTES % (AUTO) 9 % (0-12); NEUTROPHILS # (AUTO) 2.5 X 10^3 (1.8-7.8); NEUTROPHILS % (AUTO) 49 % (42-75); PLATELET COUNT 227 10^3/uL (130-400); RED CELL DISTRIBUTION WIDTH 14.2 % (10.0-14.5); WHITE BLOOD COUNT 5.2 10^3/uL (4.3-11.0)
[2018-07-25] MEDS: RT-ALBUTEROL SULF 2.5 MG/3 ML PRE-MIX VIAL INH SCH ×2 (06:54→10:06)
[2018-07-25 07:12] LABS: BILIRUBIN,TOTAL 0.6 MG/DL (0.1-1.0); CALCIUM 8.7 MG/DL (8.5-10.1); CREATININE SERUM 1.34 MG/DL (0.60-1.30); POTASSIUM 3.8 MMOL/L (3.6-5.0); TOTAL PROTEIN 5.8 GM/DL (6.4-8.2)
[2018-07-25 08:00] VITALS: BP 136/82
[2018-07-25] MEDS: KCL 10 MEQ TAB (MICRO K) PO SCH ×2 (08:39→14:04)
[2018-07-25] MEDS: PIPERACILLIN/TAZO 4.5 GM/NS 100 ML IV SCH ×2 (08:44)
[2018-07-25] MEDS ORDERED: fluCOnazole (DIFLUCAN) 100 MG TAB PO SCH (09:00)
--- NOTE | 2018-07-25 09:04 | Pulmonary Progress Note ---
Subjective Time Seen by a Provider: 12:08 Subjective/Events-last exam PT feels improved. Sepsis Event Evaluation Height, Weight, BMI Height: 5'11.00" Weight: 148lbs. 5.0oz. 67.669892xa; 20.7 BMI Method:Stated Focused Exam Lactate Level 07/22/18 18:38: Lactic Acid Level 1.11 Exam Exam Vital Signs Date Time Temp Pulse Resp B/P (MAP) Pulse Ox O2 Delivery O2 Flow Rate FiO2 07/25/18 07:00 74 07/25/18 06:54 95 Room Air 07/25/18 04:00 97.2 87 20 135/86 (102) 95 Room Air 07/25/18 01:00 98 07/25/18 00:00 99.6 91 18 129/79 (96) 95 Room Air 07/25/18 00:00 99.6 07/24/18 23:30 100.7 07/24/18 20:00 99.2 116 18 121/77 (92) 95 Room Air 07/24/18 20:00 Room Air 07/24/18 19:11 99 Room Air 07/24/18 19:00 110 07/24/18 16:04 98.7 108 18 132/83 (99) 97 Room Air 07/24/18 15:24 94 Room Air 07/24/18 13:00 90 07/24/18 12:00 98.9 96 18 116/76 (89) 96 Room Air 07/24/18 10:31 91 Room Air I & O 07/25/18 07:00 Intake Total 2680 ml Output Total 2900 ml Balance -220 ml Height & Weight Height: 5'11.00" Weight: 148lbs. 5.0oz. 67.618300zt; 20.7 BMI Method:Stated General Appearance: No Apparent Distress, WD/WN, Anxious, Chronically ill HEENT: PERRL/EOMI, Normal ENT Inspection, Pharynx Normal Neck: Full Range of Motion, Normal Inspection, Non Tender, Supple, Carotid Bruit Respiratory: Chest Non Tender, No Accessory Muscle Use, No Respiratory Distress , Crackles (bases), Decreased Breath Sounds Cardiovascular: Regular Rate, Rhythm, No Edema, No Gallop, No JVD, No Murmur, Normal Peripheral Pulses Gastrointestinal: non tender, soft, no organomegaly Extremity: Normal Capillary Refill, Normal Inspection, Normal Range of Motion, Non Tender, No Calf Tenderness, No Pedal Edema Neurologic/Psychiatric: Alert, Oriented x3, No Motor/Sensory Deficits, Normal Mood/Affect Skin: Normal Color, Warm/Dry Lymphatic: No Adenopathy Results Lab Laboratory Tests 07/24/18 07:55 07/25/18 06:45 Assessment/Plan Assessment/Plan PNA RLL - failed out patient treatment -Mycoplasam ab is positive -Repeat CXR 2 view -Martinez cultures -- negative thus far -Continue Abx Zosyn -IVF ARF with metabolic acidosis -IVF and monitor Rectal bleeding -Dr. Rollins is consulted -Plan is for out pt colonoscopy -Hb is stable GERD JAYCE JUAN DO Jul 25, 2018 09:04
--- NOTE | 2018-07-25 09:50 | Diagnostic Imaging Report ---
INDICATION: Followup pneumonia. TIME OF EXAMINATION: 09:28 a.m. COMPARISON: Correlation is made with prior study from 07/22/2018. FINDINGS: Heart size is stable. There is some minimal linear atelectasis or scarring in the left base. This is similar to prior study. Minimal subsegmental atelectasis in the right base is also noted. No effusion is seen. There is no pneumothorax. IMPRESSION: Minimal bibasilar subsegmental atelectasis/infiltrate, similar to examination from three days earlier. Dictated by: Dictated on workstation # [id number]
[2018-07-25] MEDS ORDERED: CEFD300C3 PO (11:30)
[2018-07-25] MEDS ORDERED: NYST1000 PO (11:30)
--- NOTE | 2018-07-25 11:32 | Discharge Summary-Hospitalist ---
Diagnosis/Chief Complaint Date of Admission Jul 22, 2018 at 17:55 Date of Discharge Discharge Date: Jul 25, 2018 Admission Diagnosis Left lower lobe pneumonia failed Augmentin therapy Fever 104.3 Dehydration Hypokalemia Low magnesium Abnormal cardiac rhythm workup by Dr. Flower in process Plan: IV antibiotics Continue IV fluids Replace potassium Nebulizer treatments Oxygen Dr. Rollins for consultation Discharge Diagnosis (1) Sepsis Status: Resolved (2) Fever Status: Resolved (3) Pneumonia Status: Acute (4) Leukopenia Status: Acute (5) Rectal bleeding Status: Resolved (6) Hypokalemia Status: Resolved (7) GERD (gastroesophageal reflux disease) Status: Chronic (8) Hypertension Status: Chronic (9) Renal insufficiency Status: Acute Discharge Summary Discharge Physical Exam Allergies: Coded Allergies: NKANo Known Allergies (Verified Allergy, Unknown, 09/03/15) Vitals & I&Os Vital Signs Date Time Temp Pulse Resp B/P (MAP) Pulse Ox O2 Delivery O2 Flow Rate FiO2 07/25/18 10:06 91 Room Air 07/25/18 08:00 97.4 77 18 136/82 (100) 07/23/18 16:27 2.00 General Appearance: WD/WN, Anxious, Chronically ill, Moderate Distress, Other ( acutely ill, ashen) HEENT: PERRL/EOMI, Normal ENT Inspection, Pharynx Normal, Other (dry MM) Respiratory: Chest Non Tender, No Accessory Muscle Use, No Respiratory Distress , Crackles (bases), Decreased Breath Sounds Cardiovascular: Regular Rate, Rhythm, No Edema, No Gallop, No JVD, No Murmur, Normal Peripheral Pulses Gastrointestinal: Normal Bowel Sounds, No Organomegaly, No Pulsatile Mass, Non Tender, Soft Extremity: Normal Capillary Refill, Normal Inspection, Normal Range of Motion, Non Tender, No Calf Tenderness, No Pedal Edema Skin: Normal Color, Warm/Dry Neurologic/Psychiatric: Alert, Oriented x3, No Motor/Sensory Deficits, Normal Mood/Affect Hospital Course Was the Problem List Reviewed?: Yes Hospital course: Patient had a lengthy hospital course after she was directly admitted from my clinic for fever of 104.3 and failed antibiotic as an outpatient of Augmentin 875 MG twice daily given on Sunday. She was found to be influenza negative on this hospital stay and the previous Sunday. She was placed on Augmentin for presumed strep pharyngitis but due to the severity of her gag reflex unable to obtain any strep culture. She continued to run a fever became very lethargic and she appeared to be ashen when she was seen in my clinic as she was directly admitted placed on aggressive IV fluids and potassium supplementation and found to have a left lower lobe pneumonia on chest x-ray. She is placed on vancomycin and Zosyn broad-spectrum due to failure of Augmentin broad-spectrum oral antibiotics. Acute renal insufficiency occurred resulted in elevated thank trough level so vancomycin was discontinued maintain on Zosyn and IV fluids and had near complete resolution to creatinine 1.3 at time of discharge. She did mention left lower leg pain and she was not given Lovenox for DVT prophylaxis due to rectal bleeding that resolved and Dr. Rollins will perform outpatient colonoscopy so lower extremity ultrasound would be obtained prior to discharge. She was able to ambulate aggressively during the whole entire hospital course. She'll be seen in close follow-up in my clinic on Sunday. Labs (last 24 hrs) Laboratory Tests 07/25/18 06:45: White Blood Count 5.2, Red Blood Count 3.62L, Hemoglobin 11.0L, Hematocrit 32L, Mean Corpuscular Volume 90, Mean Corpuscular Hemoglobin 30, Mean Corpuscular Hemoglobin Concent 34, Red Cell Distribution Width 14.2, Platelet Count 227, Mean Platelet Volume 9.9, Neutrophils (%) (Auto) 49, Lymphocytes (%) (Auto) 33, Monocytes (%) (Auto) 9, Eosinophils (%) (Auto) 8, Basophils (%) (Auto) 1, Neutrophils # (Auto) 2.5, Lymphocytes # (Auto) 1.7, Monocytes # (Auto) 0.5, Eosinophils # (Auto) 0.4H, Basophils # (Auto) 0.0, Sodium Level 142, Potassium Level 3.8, Chloride Level 115H, Carbon Dioxide Level 17L, Anion Gap 10, Blood Urea Nitrogen 10, Creatinine 1.34H, Estimat Glomerular Filtration Rate 40, BUN/ Creatinine Ratio 7, Glucose Level 97, Calcium Level 8.7, Corrected Calcium 9.5, Total Bilirubin 0.6, Aspartate Amino Transf (AST/SGOT) 55H, Alanine Aminotransferase (ALT/SGPT) 41, Alkaline Phosphatase 73, Total Protein 5.8L, Albumin 3.0L Microbiology 07/22/18 Blood Culture - Preliminary, Resulted No growth 07/23/18 MRSA Screen - Final, Complete Patient resulted labs reviewed. Pending Labs Laboratory Tests 07/25/18 06:45: White Blood Count 5.2, Red Blood Count 3.62, Hemoglobin 11.0, Hematocrit 32, Mean Corpuscular Volume 90, Mean Corpuscular Hemoglobin 30, Mean Corpuscular Hemoglobin Concent 34, Red Cell Distribution Width 14.2, Platelet Count 227, Mean Platelet Volume 9.9, Neutrophils (%) (Auto) 49, Lymphocytes (%) (Auto) 33, Monocytes (%) (Auto) 9, Eosinophils (%) (Auto) 8, Basophils (%) (Auto) 1, Neutrophils # (Auto) 2.5, Lymphocytes # (Auto) 1.7, Monocytes # (Auto) 0.5, Eosinophils # (Auto) 0.4, Basophils # (Auto) 0.0, Sodium Level 142, Potassium Level 3.8, Chloride Level 115, Carbon Dioxide Level 17, Anion Gap 10, Blood Urea Nitrogen 10, Creatinine 1.34, Estimat Glomerular Filtration Rate 40, BUN/ Creatinine Ratio 7, Glucose Level 97, Calcium Level 8.7, Corrected Calcium 9.5, Total Bilirubin 0.6, Aspartate Amino Transf (AST/SGOT) 55, Alanine Aminotransferase (ALT/SGPT) 41, Alkaline Phosphatase 73, Total Protein 5.8, Albumin 3.0 Imaging: Reviewed Imaging Films, Reviewed Imaging Report Discussion & Recommendations Discharge Planning: <30 minutes discharge planning Discharge Home Medications: Active Scripts Active Cefdinir 300 Mg Capsule 300 Mg PO BID Nystatin 100,000 Unit/1 Ml Oral.susp 5 Ml PO QIDACHS Reported Potassium Chloride 10 Meq Tab.er.prt 10 Meq PO DAILY LAST FILLED #30 18 Amoxicillin 500 Mg Capsule 2,000 Mg PO UD PRN TAKES 4 (500MG) CAPSULES ONE HOUR PRIOR TO DENTAL APPOINTMENTS Amox Tr-K Clv 875-125 mg Tab (Amoxicillin/Potassium Clav) 1 Each Tablet 1 Tab PO BID 7 DAY SUPPLY FILLED 07-19-18 Fish Oil 1,000 mg Capsule ([place] 3 Polyunsat Fatty Acids) 1,000 Mg Cap 1,000 Mg PO DAILY Nexium 24Hr (Esomeprazole Magnesium) 20 Mg Capsule.dr 20 Mg PO DAILY PRN Vitamin B Complex 1 Each Capsule 1 Cap PO DAILY Hydrochlorothiazide 25 Mg Tablet 25 Mg PO DAILY Vitamin D-3 (Cholecalciferol (Vitamin D3)) 2,000 Unit Capsule 2,000 Unit PO DAILY Probiotic (L.acidoph & Paracasei,B.lactis) 1 Each Capsule 1 Cap PO DAILY Flonase Allergy Relief (Fluticasone Propionate) 9.9 Ml [place].susp 1 [place] NS BID PRN Melany Allergy (Fexofenadine HCl) 180 Mg Tablet 180 Mg PO DAILY PRN Instructions to patient/family Please see electronic discharge instructions given to patient. Clinical Quality Measures DVT/VTE Risk/Contraindication: Risk Factor Score Per Nursin RFS Level Per Nursing on Admit: 2=Moderate Problem Qualifiers (1) Sepsis: Sepsis type: sepsis due to unspecified organism Qualified Codes: A41.9 - Sepsis, unspecified organism (2) Fever: Fever type: unspecified Qualified Codes: R50.9 - Fever, unspecified (3) Pneumonia: Laterality: left Lung location: lower lobe of lung (4) Leukopenia: Leukopenia type: unspecified Qualified Codes: D72.819 - Decreased white blood cell count, unspecified (5) GERD (gastroesophageal reflux disease): Esophagitis presence: without esophagitis Qualified Codes: K21.9 - Gastro- esophageal reflux disease without esophagitis (6) Hypertension: Hypertension type: essential hypertension Qualified Codes: I10 - Essential ( primary) hypertension GERA PAGE DO Jul 25, 2018 11:32
[2018-07-25 12:00] VITALS: BP 131/83
--- NOTE | 2018-07-25 13:45 | NUR ---
SYDNEE REYES demonstrates understanding of discharge instructions and accurately returns instructions upon questioning. Copy of Post-Discharge Instructions and Medication Discharge Instructions given to patient. SYDNEE REYES is able to manage continuing needs after discharge. Patients belongings returned to patient and family. Skin dry and intact; no breakdown noted. Patient discharged from [facility] on 07/25/18 at 1345 . SYDNEE REYES left floor via wheelchair, accompanied by this RN.
--- NOTE | 2018-07-25 13:54 | Diagnostic Imaging Report ---
PROCEDURE: US left lower extremity venous. TECHNIQUE: Multiple real-time grayscale images were obtained over the left lower extremity in various projections. Additional duplex Doppler and color Doppler images were also obtained. INDICATION: Left calf pain. There is no evidence of a left lower extremity DVT. Left lower extremity deep venous system shows normal compressibility with normal response to augmentation and Valsalva. No fluid collection or mass is seen. IMPRESSION: No evidence of left lower extremity DVT. Dictated by: Dictated on workstation # [id number]
--- NOTE | 2018-07-25 14:20 | Progress Note ---
Subjective Date Seen by a Provider: Jul 25, 2018 Time Seen by a Provider: 08:06 Subjective/Events-last exam patient feeling better today. no blood per rectum she states. tolerating diet. no new complaints. Focused Exam Lactate Level 07/22/18 18:38: Lactic Acid Level 1.11 Objective Exam Vital Signs Date Time Temp Pulse Resp B/P (MAP) Pulse Ox O2 Delivery O2 Flow Rate FiO2 07/25/18 13:00 92 07/25/18 10:06 91 Room Air 07/25/18 08:00 97.4 77 18 136/82 (100) 97 Room Air 07/25/18 07:00 74 07/25/18 06:54 95 Room Air 07/25/18 04:00 97.2 87 20 135/86 (102) 95 Room Air 07/25/18 01:00 98 07/25/18 00:00 99.6 91 18 129/79 (96) 95 Room Air 07/25/18 00:00 99.6 07/24/18 23:30 100.7 07/24/18 20:00 99.2 116 18 121/77 (92) 95 Room Air 07/24/18 20:00 Room Air 07/24/18 19:11 99 Room Air 07/24/18 19:00 110 07/24/18 16:04 98.7 108 18 132/83 (99) 97 Room Air 07/24/18 15:24 94 Room Air I & O 07/25/18 07:00 Intake Total 2680 ml Output Total 2900 ml Balance -220 ml Capillary Refill : General Appearance: WD/WN, Anxious, Chronically ill HEENT: PERRL/EOMI, Normal ENT Inspection, Pharynx Normal, Other (dry MM) Neck: Full Range of Motion, Normal Inspection, Non Tender, Supple Respiratory: Chest Non Tender, No Accessory Muscle Use, No Respiratory Distress , Decreased Breath Sounds Cardiovascular: Regular Rate, Rhythm, No Edema, No Gallop, No JVD, No Murmur, Normal Peripheral Pulses Gastrointestinal: non tender, soft, no organomegaly, no pulsatile mass Extremity: Normal Capillary Refill, Normal Inspection, Non Tender, No Calf Tenderness, No Pedal Edema Neurologic/Psychiatric: Alert, Oriented x3, No Motor/Sensory Deficits, Normal Mood/Affect Skin: Normal Color, Warm/Dry Lymphatic: No Adenopathy Results Lab Laboratory Tests 07/25/18 06:45: White Blood Count 5.2, Red Blood Count 3.62L, Hemoglobin 11.0L, Hematocrit 32L, Mean Corpuscular Volume 90, Mean Corpuscular Hemoglobin 30, Mean Corpuscular Hemoglobin Concent 34, Red Cell Distribution Width 14.2, Platelet Count 227, Mean Platelet Volume 9.9, Neutrophils (%) (Auto) 49, Lymphocytes (%) (Auto) 33, Monocytes (%) (Auto) 9, Eosinophils (%) (Auto) 8, Basophils (%) (Auto) 1, Neutrophils # (Auto) 2.5, Lymphocytes # (Auto) 1.7, Monocytes # (Auto) 0.5, Eosinophils # (Auto) 0.4H, Basophils # (Auto) 0.0, Sodium Level 142, Potassium Level 3.8, Chloride Level 115H, Carbon Dioxide Level 17L, Anion Gap 10, Blood Urea Nitrogen 10, Creatinine 1.34H, Estimat Glomerular Filtration Rate 40, BUN/ Creatinine Ratio 7, Glucose Level 97, Calcium Level 8.7, Corrected Calcium 9.5, Total Bilirubin 0.6, Aspartate Amino Transf (AST/SGOT) 55H, Alanine Aminotransferase (ALT/SGPT) 41, Alkaline Phosphatase 73, Total Protein 5.8L, Albumin 3.0L Microbiology 07/22/18 Blood Culture - Preliminary, Resulted No growth 07/23/18 MRSA Screen - Final, Complete Assessment/Plan Assessment/Plan Assessment/Plan bright red blood per rectum Left lower lobe pneumonia Fever Patient stool sample Hemoccult negative. She is not having any more bleeding at this time. Hgb stable. Patient with left lower lobe pneumonia and fever continue to medically manage. Since no more bleeding patient discussed planning colonoscopy that could be done as outpatient in near future. Patient agreement plan. Okay from surgical standpoint to az. Clinical Quality Measures DVT/VTE Risk/Contraindication: Risk Factor Score Per Nursin RFS Level Per Nursing on Admit: 2=Moderate PARTHA LYN DO Jul 25, 2018 14:20
[2018-07-25 15:45] VITALS: BP 134/80
[2018-07-25 16:07] VITALS: BP 134/80
== END 2018-07-25 13:45 | disposition home or self-care (01) | DRG 871 ==
LOC: EDSTATUS 08:37 → OBSVTOIN 17:55 → 4TH 17:55 → INTOOBSV 17:55 → UNDOADMOB 17:55 → UNDODISIN 07-25 13:45
PROVIDERS: ADMIT Internal Medicine; ATTEND Internal Medicine
DX: A41.9 Sepsis, unspecified organism (principal); J18.1 Lobar pneumonia, unspecified organism; K62.5 Hemorrhage of anus and rectum; R04.2 Hemoptysis; J02.0 Streptococcal pharyngitis; E86.0 Dehydration; N28.9 Disorder of kidney and ureter, unspecified; I10 Essential (primary) hypertension; E87.6 Hypokalemia; E83.42 Hypomagnesemia; I49.9 Cardiac arrhythmia, unspecified; K21.9 Gastro-esophageal reflux disease without esophagitis; K44.9 Diaphragmatic hernia without obstruction or gangrene; J30.2 Other seasonal allergic rhinitis; Z87.891 Personal history of nicotine dependence
CPT/HCPCS: 36415; 71046; 80053; 80202; 81000; 82274; 82550; 83605; 83735; 83880; 84484; 85014; 85018; 85025; 85652; 86141; 86738; 87040; 87081; 87430; 87804; 93005; 94640; 94760

== ENCOUNTER 2018-08-08 09:30 | Outpatient (RCR) | payer BC ==
[~2018-08-08 09:30] MED LIST changes: +AMOX1TAB12 PO; +AMOX500C2 PO; +CEFD300C3 PO; +CHOL20002 PO; +ESOM20CA58 PO; +HYDR25TA4 PO; +L.AC1CAP6 PO; +NYST1000 PO; +OMG1KC PO; +POTA10TA36 PO; +VITA1CAP PO
== END 2018-10-13 | disposition home or self-care (01) ==
LOC: CARD 09:30
PROVIDERS: ATTEND Internal Medicine Interventional Cardiology
DX: R55 Syncope and collapse (principal)
CPT/HCPCS: 93270

== ENCOUNTER → 2018-09-04 | Outpatient (CLI) | payer BC ==
--- NOTE | 2018-09-04 12:46 | Diagnostic Imaging Report ---
INDICATION: Routine screening. COMPARISON: Comparison is made with prior studies from 09/04/2016 and 03/12/2015. TECHNIQUE: 2D and 3D bilateral screening mammography was performed with computer-aided detection (CAD) system. FINDINGS: Both breasts remain heterogeneously dense, limiting the sensitivity of mammography. Biopsy clip in the medial left breast is again noted. The parenchymal pattern appears to be stable. No discrete mass or malignant appearing microcalcifications are seen. The axillae are unremarkable. IMPRESSION: No mammographic features suspicious for malignancy are identified. ACR BI-RADS Category 2: Benign findings. Result letter will be mailed to the patient. Note: At least 10% of breast cancer is not imaged by mammography. Dictated by: Dictated on workstation # [id number]
== END ==
LOC: RAD 09:34
PROVIDERS: ATTEND Internal Medicine
DX: Z12.31 Encounter for screening mammogram for malignant neoplasm of breast (principal)
CPT/HCPCS: 77067

== ENCOUNTER → 2018-09-04 | Outpatient (CLI) | payer BC ==
--- NOTE | 2018-09-04 11:55 | Diagnostic Imaging Report ---
INDICATION: Pneumonia, followup. TIME OF EXAM: 10:00 a.m. COMPARISON: Correlation is made with prior study from 07/25/2018. FINDINGS: The heart size is normal. There has been improved aeration of both bases since prior study. No residual infiltrate or atelectasis is seen. There is no effusion or pneumothorax. IMPRESSION: Resolution of previously noted bibasal infiltrate/atelectasis when compared with examination from 07/25/2018. Dictated by: Dictated on workstation # [id number]
== END ==
LOC: RAD 09:36
PROVIDERS: ATTEND Nurse Practitioner Family
DX: J18.9 Pneumonia, unspecified organism (principal); J30.9 Allergic rhinitis, unspecified; G47.10 Hypersomnia, unspecified
CPT/HCPCS: 71046

== ENCOUNTER 2018-09-27 20:45 | Outpatient (CLI) | payer BC ==
[~2018-09-27 20:45] MED LIST changes: -RT-ALBUTEROL SULF 2.5 MG/3 ML PRE-MIX VIAL INH ONE
== END 2018-09-28 06:44 | disposition home or self-care (01) ==
LOC: SLEEP 20:45
PROVIDERS: ATTEND Nurse Practitioner Family
DX: G47.10 Hypersomnia, unspecified (principal); J30.9 Allergic rhinitis, unspecified; J17 Pneumonia in diseases classified elsewhere
CPT/HCPCS: 95810

== ENCOUNTER → 2018-09-27 | Outpatient (CLI) | payer BC ==
[~2018-09-27] MED LIST changes: +RT-ALBUTEROL SULF 2.5 MG/3 ML PRE-MIX VIAL INH ONE
== END ==
LOC: RAD 08:35
PROVIDERS: ATTEND Nurse Practitioner Family
DX: J30.9 Allergic rhinitis, unspecified (principal); J17 Pneumonia in diseases classified elsewhere; G47.10 Hypersomnia, unspecified
CPT/HCPCS: 94060; 94726; 94729

== ENCOUNTER 2018-10-24 07:46 | Day surgery (SDC) | payer BC ==
[~2018-10-24] VITALS: Ht 149.9 cm; Wt 65.8 kg
[2018-10-24] MEDS ORDERED: LIDOCAINE 1% INJ 20 ML 20 ML VIAL ONE (07:53)
[2018-10-24] MEDS ORDERED: LIDOCAINE 1% INJ 20 ML 20 ML VIAL INJ ONE (08:00)
[2018-10-24 08:07] VITALS: BP 138/87
--- NOTE | 2018-10-24 12:12 | Implantation of Loop Monitor ---
Implant of Loop Monitior PROCEDURE PHYSICIAN: Corie Flower MD IMPLANTATION OF LOOP MONITOR REPORT DATE OF PROCEDURE: 10/24/18 ATTENDING PHYSICIAN: Dr. Joshua Flower. PERFORMING PHYSICIAN: Dr. Joshua Flower. INDICATION: Syncope PREOP DIAGNOSIS: Syncope POSTOP DIAGNOSIS: Syncope, s/p implantation of loop recorder. PROCEDURE DETAILS: The patient is a 63 female with history of syncope. Therefore implantable loop recorder was discussed and agreed with the patient. Informed consent was taken. All risks and complications were discussed at length. The patient was draped and prepped in the usual sterile fashion. Local anesthesia was lidocaine, which was given in the substernal area close to the 4th intercostal space. Loop monitor was implanted according to the protocol. Steri-Strips were placed at the end of the procedure. There were no complications and the patient tolerated the procedure well. The device was interrogated with a voltage of 0.33 mV. ANESTHESIA: Local anesthesia with lidocaine. COMPLICATIONS: None CONTRAST/FLUOROSCOPY: None CONCLUSION: 1. Successful implantation of loop monitor for syncope. 2. No complication and the patient tolerated the procedure well. Corie Flower MD, RS, CCDS Cardiac Electrophysiology Gema FLOWER MD October 24, 2018 12:12 pm
== END 2018-10-24 09:55 | disposition home or self-care (01) ==
LOC: CATH 07:46
PROVIDERS: ATTEND Internal Medicine Interventional Cardiology
DX: R55 Syncope and collapse (principal); I10 Essential (primary) hypertension; I48.0 Paroxysmal atrial fibrillation; I08.0 Rheumatic disorders of both mitral and aortic valves; Z79.899 Other long term (current) drug therapy
CPT/HCPCS: 33285

== ENCOUNTER → 2020-01-02 | Outpatient (CLI) | payer BC, MEDICARE | LOC: CARD 08:05 | PROVIDERS: ATTEND Internal Medicine Interventional Cardiology | DX: I08.0 Rheumatic disorders of both mitral and aortic valves (principal); I11.9 Hypertensive heart disease without heart failure | CPT/HCPCS: 93306 ==

== ENCOUNTER → 2020-01-02 | Outpatient (CLI) | payer BC, MEDICARE ==
--- NOTE | 2020-01-02 11:48 | Diagnostic Imaging Report ---
INDICATION: Routine screening. Comparison is made with prior mammogram 09/04/2018 and 09/04/2016. 2-D and 3-D bilateral screening mammography was performed with CAD. Both breasts are heterogeneously dense, limiting the sensitivity of mammography. A marker clip in the upper inner left breast is again noted. Breast parenchymal pattern is stable. No mass or malignant appearing microcalcifications are seen. Axillae are unremarkable. IMPRESSION: BI-RADS Category 2 No mammographic features suspicious for malignancy are identified. ACR BI-RADS Category 2: Benign findings. Result letter will be mailed to the patient. Note: At least 10% of breast cancer is not imaged by mammography. Dictated by: Dictated on workstation # [id number]
== END ==
LOC: RAD 08:03
PROVIDERS: ATTEND Internal Medicine
DX: Z12.31 Encounter for screening mammogram for malignant neoplasm of breast (principal)
CPT/HCPCS: 77063; 77067

== ENCOUNTER → 2021-01-17 | Outpatient (CLI) | payer BC, MEDICARE ==
--- NOTE | 2021-01-17 11:22 | Diagnostic Imaging Report ---
INDICATION: Routine screening. Comparison is made prior mammogram from 01/02/2020 and 09/04/2018. 2-D and 3-D bilateral screening mammography was performed with CAD. Both breasts are heterogeneously dense, limiting the sensitivity of mammography. A marker clip from biopsy in the upper inner left breast is again noted. No new mass or malignant-appearing microcalcifications are seen. The axillae are unremarkable. IMPRESSION: BI-RADS Category 2 No mammographic features suspicious for malignancy are identified. ACR BI-RADS Category 2: Benign findings. Result letter will be mailed to the patient. Note: At least 10% of breast cancer is not imaged by mammography. Dictated by: Dictated on workstation # [id number]
== END ==
LOC: RAD 08:45
PROVIDERS: ATTEND Internal Medicine
DX: Z12.31 Encounter for screening mammogram for malignant neoplasm of breast (principal)
CPT/HCPCS: 77063; 77067

== ENCOUNTER → 2022-06-06 | Outpatient (CLI) | payer BC ==
[~2022-06-06] MED LIST changes: +POTA-177 PO; -POTA10TA36 PO
--- NOTE | 2022-06-06 10:50 | Diagnostic Imaging Report ---
INDICATION: Postmenopausal screening COMPARISON: 01/24/2011 FINDINGS: AP Spine L1-L4: [BMD (g/cm2): 0.817] [T-Score: -3.2] [Z-Score: -1.8] [BMD Previous: 0.921] [BMD % Change: -11.3] LT Hip Neck: [BMD (g/cm2): 0.632] [T-Score: -2.9] [Z-Score: -1.5] LT Hip Total: [BMD (g/cm2):0.744] [T-Score:-2.1] [Z-Score: -0.9] [BMD Previous: 0.783] [BMD % Change: -5.0] RT Hip Neck: [BMD (g/cm2):0.663] [T-Score:-2.7] [Z-Score:-1.2] RT Hip Total: [BMD (g/cm2):0.757] [T-score:-2.0] [Z-Score:-0.8] [BMD Previous:0.825] [BMD % Change:-8.2] *Indicates significant change from prior examination based on 95% confidence level. World Health Organization criteria for BMD interpretation classify patients as Normal (T-score at or above -1.0), Osteopenic (T-score between -1.0 and -2.5) or Osteoporotic (T-score at or below -2.5). LIMITATIONS AND MODIFICATION: None. FRACTURE RISK (FRAX SCORE): The ten year probability of (%): Major Osteoporotic Fracture: [14.4] Hip Fracture: [3.9] IMPRESSION: 1. Osteopenia (Low bone mass). 2. Bone mineral density has decreased by a statistically significant amount, as detailed above. 3. See below National Osteoporosis Foundation guidelines on when to potentially initiate pharmacologic therapy. Based on the National Osteoporosis Foundation Guidelines, pharmacologic treatment should be initiated in any of the following, unless clinical conditions suggest otherwise: * Any patient with prior fragility fracture of the hip or vertebrae. A spine fracture indicates 5X risk for subsequent spine fracture and 2X risk for subsequent hip fracture. * Osteoporosis (T-score <-2.5). * Postmenopausal women and men age 50 and older with low bone mass/osteopenia (T-score between -1.0 and -2.5) by DXA and 10-year major osteoporotic fracture greater than 20% or a 10-year probability of hip fracture greater than 3%. These fracture risks are supplied above in the FRAX score, if applicable. * Clinician judgement and/or patient preferences may indicate treatment for people with 10-year fracture probabilities above or below these levels. Dictated by: Dictated on workstation # [id number]
--- NOTE | 2022-06-06 15:39 | Diagnostic Imaging Report ---
INDICATION: Routine screening. COMPARISON: 01/17/2021 and 01/02/2020. TECHNIQUE: 2D and 3D bilateral screening mammography was performed with CAD. FINDINGS: Both breasts are heterogeneously dense, limiting the sensitivity of mammography. A biopsy clip in the upper slightly inner left breast is again noted. An intraparenchymal lymph node in the outer left breast at posterior depth appears stable. No spiculated mass or malignant-appearing microcalcifications are seen. The axillae are unremarkable. IMPRESSION: No mammographic features suspicious for malignancy are identified. ACR BI-RADS Category 2: Benign findings. Result letter will be mailed to the patient. Note: At least 10% of breast cancer is not imaged by mammography. Dictated by: Dictated on workstation # [id number]
== END ==
LOC: RAD 08:45
PROVIDERS: ATTEND Internal Medicine
DX: Z12.31 Encounter for screening mammogram for malignant neoplasm of breast (principal); M85.80 Other specified disorders of bone density and structure, unspecified site; Z78.0 Asymptomatic menopausal state
CPT/HCPCS: 77063; 77067; 77080

== ENCOUNTER 2022-07-05 05:39 | Outpatient (CLI) | payer BC ==
[~2022-07-05] VITALS: Ht 149.9 cm; Wt 70.9 kg
[~2022-07-05 05:39] MED LIST changes: -POTA10CA43 PO; +POTA10CA44 PO
[2022-07-05] MEDS ORDERED: MULT-593 PO (13:13)
[2022-07-05] MEDS ORDERED: ATOR10TA66 PO (13:13)
[2022-07-05] MEDS ORDERED: METO-333 PO (13:13)
== END 2022-07-05 13:19 | disposition home or self-care (01) ==
LOC: PREOP 05:39
PROVIDERS: ATTEND Surgery
DX: Z01.818 Encounter for other preprocedural examination (principal)

== ENCOUNTER 2022-07-18 11:18 | Day surgery (SDC) | payer BC ==
[~2022-07-18] VITALS: Ht 150 cm; Wt 70.9 kg
[~2022-07-18 11:18] MED LIST changes: +ATOR10TA66 PO; +METO-333 PO; +MULT-593 PO
[2022-07-18] MEDS ORDERED: LACTATED RINGERS 1,000 ML IV STA (11:19)
[2022-07-18] MEDS ORDERED: HURRICAINE EXT TUBE (BENZOCAINE) XX PRN (11:30)
[2022-07-18 11:40] VITALS: BP 118/82
--- NOTE | 2022-07-18 12:07 | Progress Note-Pre Operative ---
Pre-Operative Progress Note Date of Available H&P: Jun 26, 2022 Date H&P Reviewed: Jul 18, 2022 Time H&P Reviewed: 12:06 History & Physical: H&P Reviewed, Patient Examed, No changes noted Pre-Operative Diagnosis: family hx of colon cancer and GERD PARTHA LYN DO Jul 18, 2022 12:07
[2022-07-18] MEDS ORDERED: PROPOFOL INJECTION 50 ML IV ONE ×2 (12:31→13:49)
--- NOTE | 2022-07-18 13:50 | Discharge Inst-Simple/Standard ---
Discharge Inst-Standard Patient Instructions/Follow Up Plan of Care/Instructions/FU: Ayo 2 weeks Activity as Tolerated: Yes Discharge Diet: Regular Diet (high fiber) PARTHA LYN DO Jul 18, 2022 13:50
--- NOTE | 2022-07-18 13:53 | Anesthesia-General Post-Op ---
MAC Patient Condition Mental Status/LOC: Same as Preop Cardiovascular: Satisfactory Nausea/Vomiting: Absent Respiratory: Satisfactory Pain: Controlled Complications: Absent Post Op Complications Complications None Follow Up Care/Instructions Patient Instructions None needed. Anesthesiology Discharge Order Discharge Order Patient is doing well, no complaints, stable vital signs, no apparent adverse anesthesia problems. No complications reported per nursing. VERONICA NAIDU CRNA Jul 18, 2022 13:53
[2022-07-18 13:55] VITALS: BP 94/60
[2022-07-18 14:00] VITALS: BP 102/68
[2022-07-18 14:05] VITALS: BP 109/70
[2022-07-18 14:40] VITALS: BP 109/70
--- NOTE | 2022-07-18 20:46 | OPERATIVE REPORT ---
DATE OF SERVICE: 07/18/2022 PREOPERATIVE DIAGNOSES: GERD and a family history of colon cancer. POSTOPERATIVE DIAGNOSES: Small hiatal hernia, small rectal polyp, diverticulosis. PROCEDURE: EGD with biopsies, colonoscopy with cold biopsy polypectomy. SURGEON: Partha Rollins DO. ANESTHESIA: Per [employer]. ESTIMATED BLOOD LOSS: None. COMPLICATIONS: None. INDICATIONS: The patient is a 66-year-old female, needing EGD and colonoscopy, understands risks and benefits of procedure and wishes to proceed. Consent was signed in chart. DESCRIPTION OF PROCEDURE: The patient was taken to endoscopy suite, placed in left lateral recumbent position. Timeout was performed. Scope was inserted in mouth, down the esophagus, stomach and duodenum without difficulty. No polyps, masses, ulcerations of the duodenum. Scope was retracted back to the stomach, which was further insufflated. A small benign-appearing gastric polyp. Biopsy of the antrum was obtained. Scope was retroflexed, showing a small hiatal hernia, noting no other pathology. Scope was returned to its normal position and withdrawn until the distal esophagus. Biopsy of the GE junction was obtained. No polyps, masses or ulcerations. Scope was slowly retracted back until completely removed. Digital rectal exam was performed. No palpable polyps, masses or ulcerations. Scope was inserted in the rectum, advanced all the way to the cecum with minimal difficulty. Prep was adequate. Scope was then slowly retracted back. No polyps, masses, or ulcerations in the cecum, ascending, transverse and descending colon. In the sigmoid colon, very minimal amount of diverticulosis present. Scope was then slowly retracted back to the rectum where a very small polyp was present, which cold biopsy polypectomy was performed. Scope was then retroflexed noting no other pathology. Scope was returned to its normal position, slowly withdrawn until completely removed. The patient tolerated the procedure well without any complications, taken to recovery room in stable condition. RECOMMENDATIONS: The patient will need repeat colonoscopy in 5 years. Any issues before that be seen at that time. We will recommend high fiber diet due to diverticulosis. She will follow up on pathology. Continue with current medications. Further recommendations pending other biopsy results. Job ID: [id number] DocumentID: [id number] Dictated Date: 07/18/2022 13:55:53 Bell Attendant Date: 07/18/2022 20:44:00 Dictated By: PARTHA ROLLINS DO
== END 2022-07-18 15:10 | disposition home or self-care (01) ==
LOC: ENDO 11:18
PROVIDERS: ATTEND Surgery
DX: Z12.11 Encounter for screening for malignant neoplasm of colon (principal); K62.1 Rectal polyp; K57.30 Diverticulosis of large intestine without perforation or abscess without bleeding; K21.9 Gastro-esophageal reflux disease without esophagitis; K44.9 Diaphragmatic hernia without obstruction or gangrene; Z80.0 Family history of malignant neoplasm of digestive organs; E66.9 Obesity, unspecified; Z68.31 Body mass index [BMI] 31.0-31.9, adult; Z79.899 Other long term (current) drug therapy
CPT/HCPCS: 88305